=== PATIENT | female | born 1965 | race Caucasian/White ===

== ENCOUNTER 2023-09-24 05:42 | Inpatient (IN) | payer MEDICAID ==
[~2023-09-24] VITALS: Ht 162.6 cm; Wt 58.1 kg
[2023-09-24] MEDS ORDERED: ONDANSETRON HCL/PF 4 MG/2 ML VIAL ONE (06:27)
[2023-09-24] MEDS ORDERED: FAMOTIDINE/PF INJ 20 MG/2 ML VIAL IV ONE (06:27)
[2023-09-24] MEDS: ONDANSETRON HCL/PF 4 MG/2 ML VIAL IVP ONE (06:34)
[2023-09-24] MEDS: IV NS 0.9% 1,000 ML BAG IV ONE (06:34)
[2023-09-24] MEDS: FAMOTIDINE/PF INJ 20 MG/2 ML VIAL IV ONE (06:35)
[2023-09-24 06:41] LABS: BASOPHILS % (AUTO) 0.3 % (0.0-2.0); EOSINOPHILS # (AUTO) 0.1 K/uL (0.0-0.7); EOSINOPHILS % (AUTO) 1.3 % (0.0-6.0); HEMATOCRIT 34 % (33-45); HEMOGLOBIN 11.1 g/dL (11.5-14.8); LYMPHOCYTES # (AUTO) 1.4 K/uL (0.8-4.8); LYMPHOCYTES % (AUTO) 13.4 % (20.0-44.0); MEAN CORPUSCULAR HEMOGLOBIN 32 PG (26.0-33.0); MEAN CORPUSCULAR HGB CONC 33 g/dl (31.0-36.0); MEAN CORPUSCULAR VOLUME 96 fL (82-100); MONOCYTES # (AUTO) 0.7 K/uL (0.1-1.30); MONOCYTES % (AUTO) 6.6 % (2.0-12.0); NEUTROPHILS # (AUTO) 8.4 K/uL (1.8-8.9); NEUTROPHILS % (AUTO) 78.4 % (43.0-81.0); PLATELET COUNT (AUTO) 182 K/uL (150-450); RED BLOOD CELL COUNT(AUTO) 3.49 MIL/uL (4.0-5.2); RED CELL DISTRIBUTION WIDTH 16.5 % (11.5-15.0); WHITE BLOOD COUNT (AUTO) 10.8 K/uL (4.3-11.0)
[2023-09-24 07:18] LABS: ALANINE AMINOTRANSFERASE 25 U/L (12-78); ALBUMIN 2.2 g/dL (3.4-5.0); ALKALINE PHOSPHATASE 154 U/L (46-116); ASPARTATE AMINOTRANSFERASE 78 U/L (15-37); BILIRUBIN,DIRECT 1.6 mg/dL (0.0-0.2); BILIRUBIN,TOTAL 2.4 mg/dL (0.2-1.0); CALCIUM, SERUM 7.5 mg/dL (8.5-10.1); CHLORIDE 106 mmol/L (98-107); CREATININE 1.1 mg/dL (0.6-1.3); GLUCOSE 93 mg/dL (74-106); LIPASE 29 U/L (16-77); SODIUM SERUM 137 mmol/L (136-145); TOTAL PROTEIN, SERUM 6.6 g/dL (6.4-8.2); UREA NITROGEN, BLOOD 9 mg/dL (7-18)
[2023-09-24 07:26] LABS: CARBON DIOXIDE 14 mmol/L (21-32); POTASSIUM 2.8 mmol/L (3.5-5.1)
[2023-09-24 07:27] LABS: APPEARANCE,URINE CLEAR (CLEAR); BILIRUBIN,URINE 2+ (NEGATIVE); BLOOD, URINE NEGATIVE Ery/uL (NEGATIVE); COLOR,URINE YELLOW (YELLOW); KETONES,URINE 1+ mg/dL (NEGATIVE); LEUKOCYTE ESTERASE ,URINE NEGATIVE (NEGATIVE); NITRITE, URINE POSITIVE (NEGATIVE); PH,URINE 6.5 (5.0-8.0); PROTEIN,URINE TRACE mg/dl (NEGATIVE); UGLUCOSE TRACE mg/dL (NEGATIVE)
[2023-09-24] MEDS: POTASSIUM CL. PREMIX PERIPHER. 50 ML IV SCH (07:56)
[2023-09-24] MEDS ORDERED: diphenhydrAMINE HCL 50 MG/ML VIAL ONE (08:01)
[2023-09-24] MEDS ORDERED: METOCLOPRAMIDE HCL 10 MG/2 ML VIAL ONE (08:01)
[2023-09-24] MEDS ORDERED: OMEP40CA21 PO (08:06)
[2023-09-24] MEDS ORDERED: IBUP-1955 PO (08:06)
[2023-09-24] MEDS ORDERED: SPIR100T5 PO (08:06)
[2023-09-24] MEDS: diphenhydrAMINE HCL 50 MG/ML VIAL IV ONE (08:10)
[2023-09-24] MEDS: METOCLOPRAMIDE HCL 10 MG/2 ML VIAL IV ONE (08:11)
[2023-09-24 08:15] LABS: RBC,URINE NONE SEEN /HPF (0-2); WBC,URINE 0-2 /HPF (0-3)
[2023-09-24 08:16] LABS: ADD URINE CULTURE YES; CALCIUM OXALATE CRYSTALS,UR Moderate /HPF (None Seen); SQUAMOUS EPITHELIAL CELL,UR Moderate /HPF (None Seen)
[2023-09-24 08:17] LABS: BACTERIA,URINE Moderate /HPF (None Seen)
[2023-09-24] MEDS ORDERED: ONDANSETRON 4 MG TAB.RAPDIS ONE (09:29)
[2023-09-24] MEDS: ONDANSETRON 4 MG TAB.RAPDIS SL ONE (09:48)
[2023-09-24] MEDS ORDERED: MORPHINE SULFATE INJ 2 MG/ML DISP.SYRIN ONE (09:51)
[2023-09-24] MEDS: MORPHINE SULFATE INJ 2 MG/ML DISP.SYRIN IV ONE (09:54)
[2023-09-24] MEDS ORDERED: ACETAMINOPHEN 325 MG TABLET PO PRN (10:00)
[2023-09-24] MEDS ORDERED: ONDANSETRON HCL/PF 4 MG/2 ML VIAL IVP PRN (10:00)
[2023-09-24] MEDS ORDERED: POTASSIUM CL. PREMIX PERIPHER. 50 ML ONE (10:53)
[2023-09-24] MEDS: PANTOPRAZOLE 40 MG VIAL IV SCH (10:58)
[2023-09-24 11:30] VITALS: BP 112/80; TEMP 97.7; O2SAT 95
[2023-09-24] MEDS: IV NS 0.9% 1,000 ML IV PRN (12:51)
[2023-09-24 12:55] VITALS: BP 112/80; TEMP 97.7; O2SAT 94
[2023-09-24 16:00] VITALS: BP 94/71; TEMP 97.9; O2SAT 99
[2023-09-24 21:13] VITALS: BP 108/80; TEMP 97.9; O2SAT 100
[2023-09-25 06:53] LABS: BASOPHILS % (AUTO) 0.4 % (0.0-2.0); EOSINOPHILS # (AUTO) 0.2 K/uL (0.0-0.7); EOSINOPHILS % (AUTO) 2.9 % (0.0-6.0); HEMATOCRIT 33 % (33-45); HEMOGLOBIN 10.5 g/dL (11.5-14.8); LYMPHOCYTES # (AUTO) 1.3 K/uL (0.8-4.8); LYMPHOCYTES % (AUTO) 15.7 % (20.0-44.0); MEAN CORPUSCULAR HEMOGLOBIN 31 PG (26.0-33.0); MEAN CORPUSCULAR HGB CONC 32 g/dl (31.0-36.0); MEAN CORPUSCULAR VOLUME 97 fL (82-100); MONOCYTES # (AUTO) 0.5 K/uL (0.1-1.30); MONOCYTES % (AUTO) 6.1 % (2.0-12.0); NEUTROPHILS # (AUTO) 6.3 K/uL (1.8-8.9); NEUTROPHILS % (AUTO) 74.9 % (43.0-81.0); PLATELET COUNT (AUTO) 132 K/uL (150-450); RED CELL DISTRIBUTION WIDTH 16.7 % (11.5-15.0); WHITE BLOOD COUNT (AUTO) 8.4 K/uL (4.3-11.0)
[2023-09-25 07:20] LABS: CREATININE 0.9 mg/dL (0.6-1.3); MAGNESIUM 1.3 mg/dL (1.8-2.4); PHOSPHORUS 2.7 mg/dL (2.5-4.9); POTASSIUM 3.1 mmol/L (3.5-5.1)
[2023-09-25 08:09] VITALS: BP 99/73; TEMP 98.6; O2SAT 100
[2023-09-25] MEDS ORDERED: OMEPRAZOLE 20 MG CAPSULE.DR PO SCH (09:00)
[2023-09-25] MEDS: FOLIC ACID 1 MG TABLET PO SCH (09:03)
[2023-09-25] MEDS: THIAMINE HCL 100 MG TABLET PO SCH (09:04)
[2023-09-25] MEDS: SPIRONOLACTONE 25 MG TABLET PO SCH (09:04)
[2023-09-25 09:25] LABS: PROTHROMBIN TIME 20.3 SECS (9.2-11.1)
[2023-09-25] MEDS: POTASSIUM CHLORIDE 20 MEQ TAB.PRT.SR PO ONE (10:26)
[2023-09-25] MEDS: MAGNESIUM OXIDE 400 MG TABLET PO ONE (10:27)
[2023-09-25] MEDS ORDERED: ivermectin TP ×2 (11:07→11:08)
[2023-09-25 16:08] VITALS: BP 90/62; TEMP 97.7; O2SAT 98
[2023-09-25 20:00] VITALS: BP 92/69; TEMP 98.1; O2SAT 100
[2023-09-26 06:47] LABS: BASOPHILS % (AUTO) 0.5 % (0.0-2.0); EOSINOPHILS # (AUTO) 0.2 K/uL (0.0-0.7); EOSINOPHILS % (AUTO) 1.6 % (0.0-6.0); HEMATOCRIT 29 % (33-45); HEMOGLOBIN 9.7 g/dL (11.5-14.8); LYMPHOCYTES # (AUTO) 1.3 K/uL (0.8-4.8); LYMPHOCYTES % (AUTO) 13.1 % (20.0-44.0); MEAN CORPUSCULAR HEMOGLOBIN 32 PG (26.0-33.0); MEAN CORPUSCULAR HGB CONC 34 g/dl (31.0-36.0); MEAN CORPUSCULAR VOLUME 94 fL (82-100); MONOCYTES # (AUTO) 0.7 K/uL (0.1-1.30); MONOCYTES % (AUTO) 7.1 % (2.0-12.0); NEUTROPHILS # (AUTO) 7.5 K/uL (1.8-8.9); NEUTROPHILS % (AUTO) 77.7 % (43.0-81.0); PLATELET COUNT (AUTO) 148 K/uL (150-450); RED BLOOD CELL COUNT(AUTO) 3.07 MIL/uL (4.0-5.2); RED CELL DISTRIBUTION WIDTH 16.1 % (11.5-15.0); WHITE BLOOD COUNT (AUTO) 9.7 K/uL (4.3-11.0)
[2023-09-26 06:59] LABS: CALCIUM, SERUM 8.1 mg/dL (8.5-10.1); CREATININE 1.2 mg/dL (0.6-1.3); MAGNESIUM 1.4 mg/dL (1.8-2.4); PHOSPHORUS 2.7 mg/dL (2.5-4.9); POTASSIUM 3.3 mmol/L (3.5-5.1)
[2023-09-26 08:00] VITALS: BP_SYST 120; BP_SYST 129; BP_SYST 85; BP_DIAS 65; BP_DIAS 81; TEMP 98.1; O2SAT 100
[2023-09-26] MEDS: PANTOPRAZOLE 40 MG TABLET.DR PO SCH (08:35)
[2023-09-26] MEDS: POTASSIUM CHLORIDE 20 MEQ TAB.PRT.SR PO SCH (09:23)
[2023-09-26] MEDS: MAGNESIUM OXIDE 400 MG TABLET PO ONE (10:03)
[2023-09-26 16:00] VITALS: BP 89/70; TEMP 98.2; O2SAT 98
[2023-09-27 07:30] VITALS: BP 91/67; TEMP 97.5; O2SAT 100
[2023-09-27] MEDS: MAGNESIUM HYDROXIDE 30 ML UDC PO PRN (08:34)
[2023-09-27 09:25] LABS: BASOPHILS # (AUTO) 0.1 K/uL (0.0-0.2); BASOPHILS % (AUTO) 0.7 % (0.0-2.0); EOSINOPHILS # (AUTO) 0.2 K/uL (0.0-0.7); EOSINOPHILS % (AUTO) 2.1 % (0.0-6.0); HEMATOCRIT 30 % (33-45); HEMOGLOBIN 9.8 g/dL (11.5-14.8); LYMPHOCYTES # (AUTO) 1.4 K/uL (0.8-4.8); LYMPHOCYTES % (AUTO) 14.7 % (20.0-44.0); MEAN CORPUSCULAR HEMOGLOBIN 31 PG (26.0-33.0); MEAN CORPUSCULAR HGB CONC 33 g/dl (31.0-36.0); MEAN CORPUSCULAR VOLUME 94 fL (82-100); MONOCYTES # (AUTO) 0.6 K/uL (0.1-1.30); MONOCYTES % (AUTO) 6.1 % (2.0-12.0); NEUTROPHILS # (AUTO) 7.1 K/uL (1.8-8.9); NEUTROPHILS % (AUTO) 76.4 % (43.0-81.0); PLATELET COUNT (AUTO) 145 K/uL (150-450); RED BLOOD CELL COUNT(AUTO) 3.14 MIL/uL (4.0-5.2); RED CELL DISTRIBUTION WIDTH 16.5 % (11.5-15.0); WHITE BLOOD COUNT (AUTO) 9.3 K/uL (4.3-11.0)
[2023-09-27 09:40] VITALS: BP 110/73
[2023-09-27 09:55] LABS: CALCIUM, SERUM 8.3 mg/dL (8.5-10.1); CREATININE 1.1 mg/dL (0.6-1.3); POTASSIUM 3.9 mmol/L (3.5-5.1)
[2023-09-27 10:00] LABS: BILIRUBIN,TOTAL 1.6 mg/dL (0.2-1.0); TOTAL PROTEIN, SERUM 5.8 g/dL (6.4-8.2)
[2023-09-27 11:48] LABS: INR 1.69 (0.91-1.10); PROTHROMBIN TIME 17.3 SECS (9.2-11.1)
[2023-09-27] MEDS ORDERED: FUROSEMIDE 40 MG TABLET PO SCH (15:30)
[2023-09-27 16:00] VITALS: BP 77/51; TEMP 97.9; O2SAT 100
[2023-09-27] MEDS: MIDODRINE HCL (5MG) 5 MG TABLET PO SCH (16:32)
[2023-09-27] MEDS: ALBUMIN 25% 25 GM in PREMIX 1 EA IV ONE (16:32)
[2023-09-27 20:00] VITALS: BP 94/64; TEMP 97.8; O2SAT 100
[2023-09-28 07:04] LABS: CALCIUM, SERUM 8.5 mg/dL (8.5-10.1); CREATININE 1.1 mg/dL (0.6-1.3); POTASSIUM 3.6 mmol/L (3.5-5.1)
[2023-09-28 07:08] LABS: ALBUMIN 2.2 g/dL (3.4-5.0); BILIRUBIN,TOTAL 2.6 mg/dL (0.2-1.0); TOTAL PROTEIN, SERUM 5.6 g/dL (6.4-8.2)
[2023-09-28 07:19] LABS: BASOPHILS % (AUTO) 0.2 % (0.0-2.0); EOSINOPHILS % (AUTO) 0.2 % (0.0-6.0); HEMATOCRIT 27 % (33-45); LYMPHOCYTES # (AUTO) 1.4 K/uL (0.8-4.8); LYMPHOCYTES % (AUTO) 8.7 % (20.0-44.0); MEAN CORPUSCULAR HEMOGLOBIN 32 PG (26.0-33.0); MEAN CORPUSCULAR HGB CONC 34 g/dl (31.0-36.0); MEAN CORPUSCULAR VOLUME 93 fL (82-100); MONOCYTES % (AUTO) 6.3 % (2.0-12.0); NEUTROPHILS # (AUTO) 13.5 K/uL (1.8-8.9); NEUTROPHILS % (AUTO) 84.6 % (43.0-81.0); PLATELET COUNT (AUTO) 150 K/uL (150-450); RED BLOOD CELL COUNT(AUTO) 2.87 MIL/uL (4.0-5.2)
[2023-09-28 07:30] VITALS: BP 90/63; TEMP 98.6; O2SAT 98
[2023-09-28 08:51] VITALS: BP 90/63
[2023-09-28] MEDS ORDERED: MIDO5TAB4 PO (11:43)
[2023-09-28] MEDS ORDERED: POTA10CA43 PO (11:43)
[2023-09-28] MEDS ORDERED: THIA100T74 PO (11:43)
== END 2023-09-28 12:15 | disposition home or self-care (01) | DRG 280 ==
LOC: ER 05:42 → MED 10:20
PROVIDERS: ADMIT Nurse Practitioner Acute Care; ATTEND Internal Medicine
PROC: 0W9G3ZZ Drainage of Peritoneal Cavity, Percutaneous Approach (ICD-10-PCS; principal; 2023-09-27)
DX: K70.31 Alcoholic cirrhosis of liver with ascites (principal); E44.0 Moderate protein-calorie malnutrition; I95.9 Hypotension, unspecified; E88.09 Other disorders of plasma-protein metabolism, not elsewhere classified; D64.9 Anemia, unspecified; E87.6 Hypokalemia; R74.01 Elevation of levels of liver transaminase levels; F10.10 Alcohol abuse, uncomplicated; Z68.22 Body mass index [BMI] 22.0-22.9, adult
CPT/HCPCS: 36415; 49083; 76705-TC; 80048-TC; 80053-TC; 80061-TC; 80076-TC; 81001; 83690-TC; 83735-TC; 84100-TC; 84484-TC; 85025-TC; 85610-TC; 86850-TC; 87086-TC; A4216; A4223; C9113; G0378; J1200; J2270; J2405; J2765; J3480; J3490; J7030; P9047; Q0162

== ENCOUNTER 2023-10-02 23:09 | Inpatient (IN) | payer MEDICAID ==
[~2023-10-02] VITALS: Ht 162.6 cm; Wt 56.7 kg
[~2023-10-02 23:09] MED LIST: IBUP-1955 PO; MIDO5TAB4 PO; OMEP40CA21 PO; POTA10CA43 PO; SPIR100T5 PO; THIA100T74 PO; ivermectin TP
[2023-10-03] MEDS ORDERED: MORPHINE SULFATE INJ 4 MG/ML DISP.SYRIN ONE (01:45)
[2023-10-03] MEDS ORDERED: ONDANSETRON HCL/PF 4 MG/2 ML VIAL ONE (01:45)
[2023-10-03] MEDS: MORPHINE SULFATE INJ 2 MG/ML DISP.SYRIN IV ONE (01:50)
[2023-10-03] MEDS: ONDANSETRON HCL/PF 4 MG/2 ML VIAL IV ONE (01:50)
[2023-10-03 02:03] LABS: BASOPHILS # (AUTO) 0.1 K/uL (0.0-0.2); BASOPHILS % (AUTO) 0.7 % (0.0-2.0); EOSINOPHILS % (AUTO) 0.4 % (0.0-6.0); HEMATOCRIT 30 % (33-45); HEMOGLOBIN 10.1 g/dL (11.5-14.8); LYMPHOCYTES # (AUTO) 1.2 K/uL (0.8-4.8); LYMPHOCYTES % (AUTO) 12.5 % (20.0-44.0); MEAN CORPUSCULAR HEMOGLOBIN 32 PG (26.0-33.0); MEAN CORPUSCULAR HGB CONC 34 g/dl (31.0-36.0); MEAN CORPUSCULAR VOLUME 94 fL (82-100); MONOCYTES # (AUTO) 0.5 K/uL (0.1-1.30); MONOCYTES % (AUTO) 5.4 % (2.0-12.0); NEUTROPHILS # (AUTO) 7.6 K/uL (1.8-8.9); PLATELET COUNT (AUTO) 198 K/uL (150-450); RED BLOOD CELL COUNT(AUTO) 3.22 MIL/uL (4.0-5.2); WHITE BLOOD COUNT (AUTO) 9.4 K/uL (4.3-11.0)
[2023-10-03 02:28] LABS: CALCIUM, SERUM 7.8 mg/dL (8.5-10.1); CREATININE 1.6 mg/dL (0.6-1.3); POTASSIUM 3.4 mmol/L (3.5-5.1)
[2023-10-03 02:35] LABS: ALBUMIN 2.6 g/dL (3.4-5.0); BILIRUBIN,DIRECT 1.4 mg/dL (0.0-0.2); BILIRUBIN,TOTAL 1.6 mg/dL (0.2-1.0); TOTAL PROTEIN, SERUM 6.8 g/dL (6.4-8.2)
[2023-10-03] MEDS ORDERED: MORPHINE SULFATE INJ 2 MG/ML DISP.SYRIN IV PRN (05:30)
[2023-10-03] MEDS: POTASSIUM CHLORIDE 20 MEQ TAB.PRT.SR PO ONE (05:30)
[2023-10-03] MEDS ORDERED: ONDANSETRON HCL/PF 4 MG/2 ML VIAL IVP PRN (05:30)
[2023-10-03 07:30] VITALS: BP 98/67; TEMP 97.7; O2SAT 100
[2023-10-03] MEDS: ALBUMIN 25% 25 GM in PREMIX 1 EA IV SCH (08:43)
[2023-10-03] MEDS: PANTOPRAZOLE 40 MG VIAL IV SCH (08:44)
[2023-10-03] MEDS: THIAMINE HCL 100 MG TABLET PO SCH (08:44)
[2023-10-03] MEDS: SPIRONOLACTONE 25 MG TABLET PO SCH (08:59)
[2023-10-03] MEDS ORDERED: CEFTRIAXONE 1 G in IV D5W 50 ML IV SCH (10:30)
[2023-10-03] MEDS: CEFTRIAXONE 1 G in IV D5W 50 ML IV SCH (11:43)
[2023-10-03 16:00] VITALS: BP 93/57; TEMP 97.5; O2SAT 100
[2023-10-03 19:50] VITALS: BP 94/65; TEMP 98.1; O2SAT 98
[2023-10-03 20:01] VITALS: BP 94/65; TEMP 98.1; O2SAT 98
[2023-10-03 20:37] LABS: CREATININE, URINE 56.1 MG/DL (30.0-125.0); URINE TOTAL PROTEIN 28.3 mg/dL (0-11.9)
[2023-10-03 20:52] LABS: APPEARANCE,URINE CLEAR (CLEAR); BILIRUBIN,URINE NEGATIVE (NEGATIVE); BLOOD, URINE NEGATIVE Ery/uL (NEGATIVE); COLOR,URINE YELLOW (YELLOW); KETONES,URINE NEGATIVE (NEGATIVE); LEUKOCYTE ESTERASE ,URINE NEGATIVE (NEGATIVE); NITRITE, URINE NEGATIVE (NEGATIVE); PROTEIN,URINE NEGATIVE (NEGATIVE); UGLUCOSE NEGATIVE (NEGATIVE)
[2023-10-03 20:55] LABS: EOSINOPHIL,URINE None Seen
[2023-10-03 20:57] VITALS: BP 94/65; TEMP 98.1; O2SAT 98
[2023-10-04 06:48] LABS: BASOPHILS % (AUTO) 0.6 % (0.0-2.0); EOSINOPHILS # (AUTO) 0.1 K/uL (0.0-0.7); EOSINOPHILS % (AUTO) 1.2 % (0.0-6.0); HEMATOCRIT 30 % (33-45); HEMOGLOBIN 9.3 g/dL (11.5-14.8); LYMPHOCYTES # (AUTO) 0.8 K/uL (0.8-4.8); LYMPHOCYTES % (AUTO) 9.5 % (20.0-44.0); MEAN CORPUSCULAR HEMOGLOBIN 31 PG (26.0-33.0); MEAN CORPUSCULAR HGB CONC 32 g/dl (31.0-36.0); MEAN CORPUSCULAR VOLUME 98 fL (82-100); MONOCYTES # (AUTO) 0.5 K/uL (0.1-1.30); MONOCYTES % (AUTO) 5.5 % (2.0-12.0); NEUTROPHILS # (AUTO) 7.1 K/uL (1.8-8.9); NEUTROPHILS % (AUTO) 83.2 % (43.0-81.0); PLATELET COUNT (AUTO) 145 K/uL (150-450); RED BLOOD CELL COUNT(AUTO) 3.01 MIL/uL (4.0-5.2); RED CELL DISTRIBUTION WIDTH 16.8 % (11.5-15.0); WHITE BLOOD COUNT (AUTO) 8.6 K/uL (4.3-11.0)
[2023-10-04 07:00] VITALS: BP 108/71; TEMP 98.4; O2SAT 100
[2023-10-04 07:53] LABS: CALCIUM, SERUM 7.6 mg/dL (8.5-10.1); CREATININE 1.3 mg/dL (0.6-1.3); MAGNESIUM 1.8 mg/dL (1.8-2.4); PHOSPHORUS 2.4 mg/dL (2.5-4.9)
[2023-10-04] MEDS: ALBUMIN 25% 12.5 GM/50 ML BOTTLE IV ONE (08:14)
[2023-10-04] MEDS: PANTOPRAZOLE 40 MG TABLET.DR PO SCH (08:21)
[2023-10-04 08:25] LABS: INR 2.54 (0.91-1.10); PROTHROMBIN TIME 25.3 SECS (9.2-11.1)
[2023-10-04] MEDS: POTASSIUM CHLORIDE 20 MEQ TAB.PRT.SR PO ONE (09:34)
[2023-10-04] MEDS: SODIUM BICARBONATE SYR 50 MEQ/50 ML DISP.SYRIN IV ONE (10:16)
[2023-10-04] MEDS ORDERED: PHYTONADIONE 5 MG TABLET PO ONE (11:00)
[2023-10-04] MEDS ORDERED: Sodium Bicarbonate 100 MEQ in IV D5/0.45 NACL 1,000 ML IV PRN (11:00)
[2023-10-04] MEDS: PHYTONADIONE INJ 10 MG/1 ML AMPUL SQ ONE (11:36)
[2023-10-04] MEDS: IV 1/2NS 1000 ML 1,000 ML IV PRN (12:22)
[2023-10-04] MEDS: NEUTRA PHOS 1 POWD.PACKET PO ONE (15:46)
[2023-10-04 16:07] VITALS: BP 96/60; TEMP 97.7; O2SAT 99
[2023-10-04 17:58] LABS: PROTEIN, BODY FLUID 1.2 G/DL
[2023-10-04 18:06] LABS: WBC, BODY FLUID 192 /cu. mm. (0-200)
[2023-10-04 19:18] LABS: APPEARANCE,SPUN,BODY FLUID CLEAR (CLEAR); TOTAL VOLUME,BODY FLUID 4665 mL
[2023-10-04 19:38] LABS: MACROPHAGES, BODY FLUID 68
[2023-10-04 19:39] LABS: POLYNUCLEAR, BODY FLUID 3 % (0-25)
[2023-10-04 20:24] VITALS: BP 111/73; TEMP 97.7; O2SAT 100
[2023-10-04] MEDS: ACETAMINOPHEN 325 MG TABLET PO PRN (23:41)
[2023-10-05] MEDS ORDERED: LORAZEPAM 0.5 MG TABLET PO PRN (01:00)
[2023-10-05 08:00] VITALS: BP 119/68; TEMP 97.5; O2SAT 100
[2023-10-05] MEDS: IV D5/0.45 NACL 1,000 ML IV ONE (08:44)
[2023-10-05 08:46] LABS: BASOPHILS # (AUTO) 0.1 K/uL (0.0-0.2); BASOPHILS % (AUTO) 0.6 % (0.0-2.0); EOSINOPHILS % (AUTO) 0.2 % (0.0-6.0); HEMATOCRIT 26 % (33-45); HEMOGLOBIN 8.7 g/dL (11.5-14.8); LYMPHOCYTES # (AUTO) 1.1 K/uL (0.8-4.8); LYMPHOCYTES % (AUTO) 12.3 % (20.0-44.0); MEAN CORPUSCULAR HEMOGLOBIN 31 PG (26.0-33.0); MEAN CORPUSCULAR HGB CONC 34 g/dl (31.0-36.0); MEAN CORPUSCULAR VOLUME 90 fL (82-100); MONOCYTES # (AUTO) 0.5 K/uL (0.1-1.30); MONOCYTES % (AUTO) 6.1 % (2.0-12.0); NEUTROPHILS % (AUTO) 80.8 % (43.0-81.0); PLATELET COUNT (AUTO) 145 K/uL (150-450); RED BLOOD CELL COUNT(AUTO) 2.85 MIL/uL (4.0-5.2); RED CELL DISTRIBUTION WIDTH 15.1 % (11.5-15.0); WHITE BLOOD COUNT (AUTO) 8.7 K/uL (4.3-11.0)
[2023-10-05 09:08] LABS: ALBUMIN 2.7 g/dL (3.4-5.0); BILIRUBIN,TOTAL 2.6 mg/dL (0.2-1.0); CALCIUM, SERUM 8.4 mg/dL (8.5-10.1); CREATININE 0.9 mg/dL (0.6-1.3); TOTAL PROTEIN, SERUM 6.1 g/dL (6.4-8.2)
[2023-10-05 09:28] LABS: POTASSIUM 2.7 mmol/L (3.5-5.1)
[2023-10-05] MEDS: LACTULOSE 10 G/15 ML UDC (PYXIS) PO PRN (11:56)
[2023-10-05] MEDS: RIFAXIMIN 550 MG TABLET PO SCH (11:56)
[2023-10-05] MEDS: POTASSIUM CHLORIDE 20 MEQ POWDER PACKET PO SCH (11:57)
[2023-10-05 12:00] VITALS: BP 147/99; TEMP 97.5; O2SAT 100
[2023-10-05] MEDS: LACTULOSE 10 G/15 ML UDC (PYXIS) NG SCH (14:14)
[2023-10-05 16:00] VITALS: BP 126/77; TEMP 97.7; O2SAT 100
[2023-10-05] MEDS ORDERED: LACTULOSE 10 G/15 ML UDC (PYXIS) NG SCH (18:00)
[2023-10-05 18:40] LABS: CALCIUM, SERUM 8.9 mg/dL (8.5-10.1); POTASSIUM 3.1 mmol/L (3.5-5.1)
[2023-10-05] MEDS ORDERED: POTASSIUM CHLORIDE 20 MEQ POWDER PACKET NG SCH (19:30)
[2023-10-05] MEDS: POTASSIUM CHLORIDE 20 MEQ POWDER PACKET GT ONE (19:55)
[2023-10-05 20:00] VITALS: BP 119/84; TEMP 97.7; O2SAT 100
[2023-10-05 20:36] VITALS: BP 119/84; TEMP 97.7; O2SAT 100
[2023-10-05 22:07] LABS: BASOPHILS # (AUTO) 0.1 K/uL (0.0-0.2); BASOPHILS % (AUTO) 0.8 % (0.0-2.0); EOSINOPHILS # (AUTO) 0.1 K/uL (0.0-0.7); EOSINOPHILS % (AUTO) 1.1 % (0.0-6.0); HEMATOCRIT 29 % (33-45); HEMOGLOBIN 9.7 g/dL (11.5-14.8); LYMPHOCYTES # (AUTO) 1.2 K/uL (0.8-4.8); LYMPHOCYTES % (AUTO) 12.2 % (20.0-44.0); MEAN CORPUSCULAR HEMOGLOBIN 31 PG (26.0-33.0); MEAN CORPUSCULAR HGB CONC 34 g/dl (31.0-36.0); MEAN CORPUSCULAR VOLUME 91 fL (82-100); MONOCYTES # (AUTO) 0.8 K/uL (0.1-1.30); MONOCYTES % (AUTO) 8.2 % (2.0-12.0); NEUTROPHILS # (AUTO) 7.7 K/uL (1.8-8.9); NEUTROPHILS % (AUTO) 77.7 % (43.0-81.0); PLATELET COUNT (AUTO) 165 K/uL (150-450); RED BLOOD CELL COUNT(AUTO) 3.13 MIL/uL (4.0-5.2); RED CELL DISTRIBUTION WIDTH 15.5 % (11.5-15.0); WHITE BLOOD COUNT (AUTO) 9.9 K/uL (4.3-11.0)
[2023-10-05 22:18] LABS: BILIRUBIN,TOTAL 2.7 mg/dL (0.2-1.0); CALCIUM, SERUM 8.7 mg/dL (8.5-10.1); CREATININE 1.1 mg/dL (0.6-1.3); PHOSPHORUS 1.3 mg/dL (2.5-4.9); POTASSIUM 3.7 mmol/L (3.5-5.1); TOTAL PROTEIN, SERUM 6.2 g/dL (6.4-8.2)
[2023-10-05 22:29] LABS: MAGNESIUM 1.2 mg/dL (1.8-2.4)
[2023-10-05] MEDS: IV D5/0.45 NACL 1,000 ML IV SCH (23:00)
[2023-10-05] MEDS: Magnesium 1 GM/2 ML VIAL IV ONE (23:30)
[2023-10-05] MEDS: Magnesium 1GM/D5W 100ML PREMIX 100 ML IV SCH (23:48)
[2023-10-05] MEDS: NEUTRA PHOS 1 POWD.PACKET NG ONE (23:48)
[2023-10-06] VITALS (7 sets, daily range): BP systolic 90–111; BP diastolic 64–83; TEMP 97.5–98.8; O2SAT 100
[2023-10-06 01:17] LABS: BILIRUBIN,DIRECT 1.3 mg/dL (0.0-0.2)
[2023-10-06 01:24] LABS: LACTIC ACID REFLEX 1.7 mmol/L (0.4-1.9)
[2023-10-06 07:39] LABS: BASOPHILS % (AUTO) 0.4 % (0.0-2.0); EOSINOPHILS # (AUTO) 0.2 K/uL (0.0-0.7); EOSINOPHILS % (AUTO) 1.5 % (0.0-6.0); HEMATOCRIT 29 % (33-45); HEMOGLOBIN 9.7 g/dL (11.5-14.8); LYMPHOCYTES # (AUTO) 1.2 K/uL (0.8-4.8); LYMPHOCYTES % (AUTO) 11.3 % (20.0-44.0); MEAN CORPUSCULAR HEMOGLOBIN 31 PG (26.0-33.0); MEAN CORPUSCULAR HGB CONC 34 g/dl (31.0-36.0); MEAN CORPUSCULAR VOLUME 91 fL (82-100); MONOCYTES # (AUTO) 0.8 K/uL (0.1-1.30); MONOCYTES % (AUTO) 7.3 % (2.0-12.0); NEUTROPHILS # (AUTO) 8.6 K/uL (1.8-8.9); NEUTROPHILS % (AUTO) 79.5 % (43.0-81.0); PLATELET COUNT (AUTO) 176 K/uL (150-450); RED BLOOD CELL COUNT(AUTO) 3.14 MIL/uL (4.0-5.2); RED CELL DISTRIBUTION WIDTH 15.8 % (11.5-15.0); WHITE BLOOD COUNT (AUTO) 10.8 K/uL (4.3-11.0)
[2023-10-06 07:58] LABS: ALBUMIN 2.9 g/dL (3.4-5.0); BILIRUBIN,TOTAL 2.8 mg/dL (0.2-1.0); CALCIUM, SERUM 8.7 mg/dL (8.5-10.1); POTASSIUM 3.5 mmol/L (3.5-5.1); TOTAL PROTEIN, SERUM 6.3 g/dL (6.4-8.2)
[2023-10-06 20:29] LABS: ABG BASE EXCESS -12.2 mmol/L; ABG BASE EXCESS -6.4 mmol/L; ABG OXYGEN SATURATION 96.4 % (92.0-98.5); ABG OXYGEN SATURATION 97.1 % (92.0-98.5); ABG PCO2 17.9 mmHg (35.0-45.0); ABG PH 7.413 (7.350-7.450); ABG PH 7.529 (7.350-7.450); ABG PO2 102.7 mmHg (75.0-100.0); ABG TOTAL HEMOGLOBIN 8.7 G/dL (12.0-16.0); ABG TOTAL HEMOGLOBIN 9.7 G/dL (12.0-16.0); AaDO2 25.6 mmHg; AaDO2 38.4 mmHg; COHb 0.3 % (0.5-1.5); COHb 0.5 % (0.5-1.5); MetHb 0.1 % (0.0-1.5); MetHb 0.2 % (0.0-1.5); O2Hb 95.7 % (94.0-97.0); O2Hb 96.7 % (94.0-97.0); SITE, ABG Left Brachial; SITE, ABG Right Radial; SITE, VBG Right Radial; VBG BASE EXCESS -8.8 mmol/L (-3-3); VBG COHb 0.2 %; VBG MetHb 0.2 %; VBG O2Hb 57.2 %; VBG OXYGEN SATURATION 57.4 %; VBG PH 7.388 (7.31-7.41); VBG PO2 31.9 mmHg (30-50); VBG TOTAL HEMOGLOBIN 10.6 G/dL (12.0-16.0); VENT MODE, BG nasal cannula; VENT MODE, VBG Room Air
[2023-10-07] VITALS: BP 94/69; TEMP 99; O2SAT 99
[2023-10-07 04:00] VITALS: BP 85/63; TEMP 98.6; O2SAT 100
[2023-10-07 08:00] VITALS: BP 88/63; TEMP 98.2; O2SAT 100
[2023-10-07] MEDS: MIDODRINE HCL (5MG) 5 MG TABLET PO SCH (08:35)
[2023-10-07] MEDS: POTASSIUM CHLORIDE 20 MEQ TAB.PRT.SR PO SCH (08:35)
[2023-10-07 10:04] LABS: INR 1.71 (0.91-1.10); PROTHROMBIN TIME 17.5 SECS (9.2-11.1)
[2023-10-07 10:11] LABS: ALBUMIN 3.1 g/dL (3.4-5.0); BILIRUBIN,DIRECT 1.5 mg/dL (0.0-0.2); BILIRUBIN,TOTAL 3.2 mg/dL (0.2-1.0); CALCIUM, SERUM 8.7 mg/dL (8.5-10.1); CREATININE 1.1 mg/dL (0.6-1.3); POTASSIUM 3.6 mmol/L (3.5-5.1); TOTAL PROTEIN, SERUM 6.6 g/dL (6.4-8.2)
[2023-10-07] MEDS: LACTULOSE 10 G/15 ML UDC (PYXIS) PO SCH (16:02)
[2023-10-07 18:12] VITALS: BP 86/56
[2023-10-07 20:00] VITALS: BP 80/57; TEMP 98.4; O2SAT 99
[2023-10-08 07:00] VITALS: BP 77/52; TEMP 99; O2SAT 100
[2023-10-08 07:28] LABS: ALBUMIN 2.8 g/dL (3.4-5.0); BILIRUBIN,TOTAL 3.2 mg/dL (0.2-1.0); CALCIUM, SERUM 8.7 mg/dL (8.5-10.1); CREATININE 1.2 mg/dL (0.6-1.3); POTASSIUM 4.1 mmol/L (3.5-5.1); TOTAL PROTEIN, SERUM 6.2 g/dL (6.4-8.2)
[2023-10-08 07:30] VITALS: BP 90/60
[2023-10-08] MEDS: IV NS 0.9% 500 ML IV ONE (09:14)
[2023-10-08 09:50] LABS: THYROID STIMULATING HORMONE 4.433 uIU/mL (0.358-3.74)
[2023-10-08] MEDS: IV D5/0.45 NACL 1,000 ML IV PRN (15:24)
[2023-10-08 16:00] VITALS: BP 76/48; TEMP 98.8; O2SAT 100
[2023-10-08 16:30] VITALS: BP 90/60
[2023-10-08] MEDS ORDERED: LACTULOSE 10 G/15 ML UDC (PYXIS) PO SCH (19:30)
[2023-10-08] MEDS ORDERED: IV NS 0.9% 1,000 ML IV ONE (19:30)
[2023-10-08 20:00] VITALS: BP 90/60; TEMP 99; O2SAT 100
[2023-10-08] MEDS ORDERED: ALBUMIN 25% 100 ML IV ONE (20:25)
[2023-10-08] MEDS: ALBUMIN 25% 25 GM in PREMIX 1 EA IV SCH (20:30)
[2023-10-08] MEDS: SODIUM BICARBONATE SYR 50 MEQ/50 ML DISP.SYRIN IV ONE (20:30)
[2023-10-08 20:45] LABS: ABG BASE EXCESS -10.5 mmol/L; ABG OXYGEN SATURATION 96.1 % (92.0-98.5); ABG PCO2 18.2 mmHg (35.0-45.0); ABG PH 7.441 (7.350-7.450); ABG PO2 91.3 mmHg (75.0-100.0); ABG TOTAL HEMOGLOBIN 8.5 G/dL (12.0-16.0); AaDO2 36.6 mmHg; COHb 0.3 % (0.5-1.5); MetHb 0.3 % (0.0-1.5); O2Hb 95.5 % (94.0-97.0); SITE, ABG Left Brachial; VENT MODE, BG room air
[2023-10-09 06:43] LABS: BASOPHILS % (AUTO) 0.3 % (0.0-2.0); EOSINOPHILS # (AUTO) 0.2 K/uL (0.0-0.7); EOSINOPHILS % (AUTO) 1.8 % (0.0-6.0); HEMATOCRIT 23 % (33-45); HEMOGLOBIN 7.9 g/dL (11.5-14.8); LYMPHOCYTES # (AUTO) 1.4 K/uL (0.8-4.8); LYMPHOCYTES % (AUTO) 11.4 % (20.0-44.0); MEAN CORPUSCULAR HEMOGLOBIN 31 PG (26.0-33.0); MEAN CORPUSCULAR HGB CONC 34 g/dl (31.0-36.0); MEAN CORPUSCULAR VOLUME 91 fL (82-100); MONOCYTES # (AUTO) 0.7 K/uL (0.1-1.30); NEUTROPHILS # (AUTO) 9.7 K/uL (1.8-8.9); NEUTROPHILS % (AUTO) 80.5 % (43.0-81.0); PLATELET COUNT (AUTO) 120 K/uL (150-450); RED BLOOD CELL COUNT(AUTO) 2.56 MIL/uL (4.0-5.2); RED CELL DISTRIBUTION WIDTH 15.6 % (11.5-15.0)
[2023-10-09 07:23] LABS: ALBUMIN 2.8 g/dL (3.4-5.0); BILIRUBIN,DIRECT 1.4 mg/dL (0.0-0.2); MAGNESIUM 1.3 mg/dL (1.8-2.4); PHOSPHORUS 2.4 mg/dL (2.5-4.9); TOTAL PROTEIN, SERUM 5.8 g/dL (6.4-8.2)
[2023-10-09 08:09] VITALS: BP 87/58; TEMP 98.8; O2SAT 100
[2023-10-09 08:15] LABS: ALBUMIN 2.8 g/dL (3.4-5.0); BILIRUBIN,TOTAL 2.9 mg/dL (0.2-1.0); CALCIUM, SERUM 8.4 mg/dL (8.5-10.1); POTASSIUM 3.5 mmol/L (3.5-5.1); TOTAL PROTEIN, SERUM 5.8 g/dL (6.4-8.2)
[2023-10-09] MEDS: Magnesium 1GM/D5W 100ML PREMIX 100 ML IV SCH (08:44)
[2023-10-09] MEDS: SODIUM BICARBONATE SYR 50 MEQ/50 ML DISP.SYRIN IV ONE (13:47)
[2023-10-09] MEDS: K PHOS NEUTRAL 250 MG TABLET PO ONE (17:37)
[2023-10-09 20:00] VITALS: BP 88/55; TEMP 98.1; O2SAT 100
[2023-10-10 07:14] LABS: ALBUMIN 2.5 g/dL (3.4-5.0); BILIRUBIN,TOTAL 2.9 mg/dL (0.2-1.0); CALCIUM, SERUM 8.1 mg/dL (8.5-10.1); CREATININE 0.9 mg/dL (0.6-1.3); POTASSIUM 3.2 mmol/L (3.5-5.1); TOTAL PROTEIN, SERUM 5.4 g/dL (6.4-8.2)
[2023-10-10 08:21] VITALS: BP 90/62; TEMP 99.2; O2SAT 99
[2023-10-10] MEDS: POTASSIUM CHLORIDE 20 MEQ TAB.PRT.SR PO ONE (09:14)
[2023-10-10 16:05] VITALS: BP 152/94; TEMP 98.6; O2SAT 95
[2023-10-10 20:00] VITALS: BP 90/46; TEMP 98.2; O2SAT 98
[2023-10-11 06:54] LABS: CREATININE 1.3 mg/dL (0.6-1.3); MAGNESIUM 1.5 mg/dL (1.8-2.4); PHOSPHORUS 2.4 mg/dL (2.5-4.9); POTASSIUM 3.7 mmol/L (3.5-5.1)
[2023-10-11 07:03] LABS: ALBUMIN 2.3 g/dL (3.4-5.0); CALCIUM, SERUM 8.3 mg/dL (8.5-10.1); CREATININE 1.3 mg/dL (0.6-1.3); POTASSIUM 3.6 mmol/L (3.5-5.1); TOTAL PROTEIN, SERUM 5.1 g/dL (6.4-8.2)
[2023-10-11 08:00] VITALS: BP 70/44; TEMP 97.7; O2SAT 99
[2023-10-11 08:30] LABS: BASOPHILS # (AUTO) 0.1 K/uL (0.0-0.2); BASOPHILS % (AUTO) 0.3 % (0.0-2.0); EOSINOPHILS # (AUTO) 0.1 K/uL (0.0-0.7); EOSINOPHILS % (AUTO) 0.5 % (0.0-6.0); HEMATOCRIT 24 % (33-45); HEMOGLOBIN 7.6 g/dL (11.5-14.8); LYMPHOCYTES # (AUTO) 1.4 K/uL (0.8-4.8); LYMPHOCYTES % (AUTO) 6.5 % (20.0-44.0); MEAN CORPUSCULAR HEMOGLOBIN 30 PG (26.0-33.0); MEAN CORPUSCULAR HGB CONC 32 g/dl (31.0-36.0); MEAN CORPUSCULAR VOLUME 92 fL (82-100); MONOCYTES # (AUTO) 1.8 K/uL (0.1-1.30); MONOCYTES % (AUTO) 8.3 % (2.0-12.0); NEUTROPHILS # (AUTO) 18.7 K/uL (1.8-8.9); NEUTROPHILS % (AUTO) 84.4 % (43.0-81.0); PLATELET COUNT (AUTO) 135 K/uL (150-450); RED BLOOD CELL COUNT(AUTO) 2.55 MIL/uL (4.0-5.2); RED CELL DISTRIBUTION WIDTH 16.1 % (11.5-15.0); WHITE BLOOD COUNT (AUTO) 22.1 K/uL (4.3-11.0)
[2023-10-11] MEDS: MAGNESIUM OXIDE 400 MG TABLET PO ONE (09:53)
[2023-10-11 09:56] VITALS: BP 70/44
== END 2023-10-11 12:30 | disposition left against medical advice (07) | DRG 280 ==
LOC: ER 23:22 → MED 10-03 05:46 → TELE 10-05 09:54 → MED 10-07 09:05
PROVIDERS: ADMIT Internal Medicine; ATTEND Student in an Organized Health Care Education/Training Program
PROC: 0W9G3ZZ Drainage of Peritoneal Cavity, Percutaneous Approach (ICD-10-PCS; principal; 2023-10-04)
DX: K70.31 Alcoholic cirrhosis of liver with ascites (principal); N17.9 Acute kidney failure, unspecified; E87.4 Mixed disorder of acid-base balance; K76.6 Portal hypertension; E44.0 Moderate protein-calorie malnutrition; E88.09 Other disorders of plasma-protein metabolism, not elsewhere classified; K76.82 Hepatic encephalopathy; D64.9 Anemia, unspecified; D72.829 Elevated white blood cell count, unspecified; E87.6 Hypokalemia; I10 Essential (primary) hypertension; Z68.21 Body mass index [BMI] 21.0-21.9, adult; E86.9 Volume depletion, unspecified; F10.10 Alcohol abuse, uncomplicated
CPT/HCPCS: 36415; 36600; 49083; 71045-TC; 76700-TC; 80048-TC; 80053-TC; 80076-TC; 82140-TC; 82248-TC; 82533; 82570-TC; 82803-TC; 83605-TC; 83690-TC; 83735-TC; 84100-TC; 84300-TC; 84439-TC; 84443-TC; 85025-TC; 85610-TC; 87081-TC; 88108-TC; 88305-TC; 89051-TC; A4216; A4223; C9113; G0378; J0696; J2270; J2405; J3430; J3475; J3490; J7040; J7042; J7050; J7060; P9047

== ENCOUNTER 2023-10-17 00:30 | Inpatient (IN) | payer MEDICAID ==
[~2023-10-17] VITALS: Ht 154.9 cm; Wt 72.6 kg
[2023-10-17] VITALS (7 sets, daily range): BP systolic 87–117; BP diastolic 43–70; TEMP 97.6–98.2; O2SAT 95–100
[2023-10-17 02:09] LABS: APPEARANCE,URINE CLEAR (CLEAR); BILIRUBIN,URINE NEGATIVE (NEGATIVE); BLOOD, URINE NEGATIVE Ery/uL (NEGATIVE); COLOR,URINE DARK YELLOW (YELLOW); KETONES,URINE NEGATIVE (NEGATIVE); LEUKOCYTE ESTERASE ,URINE NEGATIVE (NEGATIVE); NITRITE, URINE NEGATIVE (NEGATIVE); PROTEIN,URINE NEGATIVE (NEGATIVE); UGLUCOSE NEGATIVE (NEGATIVE); UROBILINOGEN,URINE 0.2 EU/dL (0.2)
[2023-10-17 02:15] LABS: BASOPHILS % (AUTO) 0.6 % (0.0-2.0); EOSINOPHILS # (AUTO) 0.1 K/uL (0.0-0.7); EOSINOPHILS % (AUTO) 1.5 % (0.0-6.0); HEMATOCRIT 27 % (33-45); HEMOGLOBIN 8.7 g/dL (11.5-14.8); LYMPHOCYTES # (AUTO) 1.1 K/uL (0.8-4.8); LYMPHOCYTES % (AUTO) 14.4 % (20.0-44.0); MEAN CORPUSCULAR HEMOGLOBIN 31 PG (26.0-33.0); MEAN CORPUSCULAR HGB CONC 32 g/dl (31.0-36.0); MEAN CORPUSCULAR VOLUME 98 fL (82-100); MONOCYTES # (AUTO) 0.4 K/uL (0.1-1.30); MONOCYTES % (AUTO) 5.4 % (2.0-12.0); NEUTROPHILS # (AUTO) 6.2 K/uL (1.8-8.9); NEUTROPHILS % (AUTO) 78.1 % (43.0-81.0); PLATELET COUNT (AUTO) 146 K/uL (150-450); RED BLOOD CELL COUNT(AUTO) 2.79 MIL/uL (4.0-5.2); RED CELL DISTRIBUTION WIDTH 17.6 % (11.5-15.0)
[2023-10-17 02:37] LABS: INR 1.67 (0.91-1.10); PROTHROMBIN TIME 17.1 SECS (9.2-11.1)
[2023-10-17 02:39] LABS: SERUM AMMONIA 85 umol/L (11-32)
[2023-10-17 02:42] LABS: CALCIUM, SERUM 8.2 mg/dL (8.5-10.1); CHLORIDE 110 mmol/L (98-107); CREATININE 1.5 mg/dL (0.6-1.3); GLUCOSE 92 mg/dL (74-106); SODIUM SERUM 137 mmol/L (136-145); UREA NITROGEN, BLOOD 20 mg/dL (7-18)
[2023-10-17 02:51] LABS: LACTIC ACID 2.4 mmol/L (0.4-2.0)
[2023-10-17 02:56] LABS: ALANINE AMINOTRANSFERASE 17 U/L (12-78); ALBUMIN 2.8 g/dL (3.4-5.0); ALKALINE PHOSPHATASE 135 U/L (46-116); ASPARTATE AMINOTRANSFERASE 44 U/L (15-37); BILIRUBIN,TOTAL 1.9 mg/dL (0.2-1.0); LIPASE 43 U/L (16-77); TOTAL PROTEIN, SERUM 6.5 g/dL (6.4-8.2)
[2023-10-17 02:59] LABS: CARBON DIOXIDE 10 mmol/L (21-32)
[2023-10-17] MEDS ORDERED: CEFTRIAXONE 1GM BAG (ER ONLY) 50 ML IV ONE (03:28)
[2023-10-17] MEDS: CEFTRIAXONE 1 G in IV D5W 50 ML IV ONE (03:33)
[2023-10-17] MEDS ORDERED: MAGNESIUM HYDROXIDE 30 ML UDC PO PRN (04:00)
[2023-10-17] MEDS ORDERED: Z GUARD REMEDY 4 OZ OINT TP PRN (04:00)
[2023-10-17] MEDS ORDERED: ALBUMIN 25% 12.5 GM/50 ML BOTTLE IV PRN (04:00)
[2023-10-17] MEDS ORDERED: PIPERACILLIN /TAZOBACTAM 3.375 G in IV D5W 50 ML IV SCH (04:00)
[2023-10-17] MEDS ORDERED: DOXYCYCLINE HYCLATE (100 MG) 100 MG TABLET ONE (04:21)
[2023-10-17] MEDS ORDERED: CEFTRIAXONE 1 G in IV D5W 50 ML IV SCH (04:30)
[2023-10-17 05:01] LABS: BILIRUBIN,DIRECT 1.1 mg/dL (0.0-0.2)
[2023-10-17 05:21] LABS: LACTIC ACID REFLEX 2.3 mmol/L (0.4-1.9)
[2023-10-17] MEDS: MIDODRINE HCL (5MG) 5 MG TABLET PO SCH (05:28)
[2023-10-17] MEDS: HYDROMORPHONE 1 MG/1 ML DISP.SYRIN IV ONE (06:09)
[2023-10-17 08:23] LABS: MAGNESIUM 1.8 mg/dL (1.8-2.4); PHOSPHORUS 3.8 mg/dL (2.5-4.9)
[2023-10-17] MEDS: PANTOPRAZOLE 40 MG TABLET.DR PO SCH (08:24)
[2023-10-17] MEDS: SPIRONOLACTONE 25 MG TABLET PO SCH (08:25)
[2023-10-17] MEDS: POTASSIUM CHLORIDE 10 MEQ TABLET.SA PO SCH (08:25)
[2023-10-17] MEDS: LACTULOSE 10 G/15 ML UDC (PYXIS) PO SCH (08:26)
[2023-10-17] MEDS ORDERED: METRONIDAZOLE 500MG/ NS 100ML 500 MG in PREMIX 1 EA IV SCH (09:00)
[2023-10-17] MEDS ORDERED: ALBUMIN 25% 12.5 GM in PREMIX 1 EA IV PRN (09:00)
[2023-10-17] MEDS: ONDANSETRON HCL/PF 4 MG/2 ML VIAL IVP PRN (09:00)
[2023-10-17] MEDS ORDERED: PANTOPRAZOLE 40 MG VIAL IV SCH (09:00)
[2023-10-17] MEDS: METRONIDAZOLE 500 MG TABLET PO SCH (11:45)
[2023-10-17] MEDS: ALBUMIN 25% 25 GM in PREMIX 1 EA IV SCH (11:53)
[2023-10-18] MEDS ORDERED: MAG HYDROX/AL HYDROX/SIMETH 30 ML UDC PO PRN (04:00)
[2023-10-18] MEDS: CEFTRIAXONE 1 G in IV D5W 50 ML IV SCH (04:33)
[2023-10-18 06:50] LABS: BASOPHILS # (AUTO) 0.1 K/uL (0.0-0.2); BASOPHILS % (AUTO) 0.6 % (0.0-2.0); EOSINOPHILS # (AUTO) 0.1 K/uL (0.0-0.7); EOSINOPHILS % (AUTO) 0.8 % (0.0-6.0); HEMATOCRIT 23 % (33-45); HEMOGLOBIN 7.4 g/dL (11.5-14.8); LYMPHOCYTES # (AUTO) 1.1 K/uL (0.8-4.8); LYMPHOCYTES % (AUTO) 6.3 % (20.0-44.0); MEAN CORPUSCULAR HEMOGLOBIN 30 PG (26.0-33.0); MEAN CORPUSCULAR HGB CONC 32 g/dl (31.0-36.0); MEAN CORPUSCULAR VOLUME 96 fL (82-100); MONOCYTES # (AUTO) 0.9 K/uL (0.1-1.30); MONOCYTES % (AUTO) 5.4 % (2.0-12.0); NEUTROPHILS # (AUTO) 14.9 K/uL (1.8-8.9); NEUTROPHILS % (AUTO) 86.9 % (43.0-81.0); PLATELET COUNT (AUTO) 134 K/uL (150-450); RED BLOOD CELL COUNT(AUTO) 2.43 MIL/uL (4.0-5.2); RED CELL DISTRIBUTION WIDTH 16.9 % (11.5-15.0); WHITE BLOOD COUNT (AUTO) 17.1 K/uL (4.3-11.0)
[2023-10-18 06:52] LABS: INR 1.89 (0.91-1.10); PROTHROMBIN TIME 19.2 SECS (9.2-11.1)
[2023-10-18 06:55] LABS: ALBUMIN 3.7 g/dL (3.4-5.0); BILIRUBIN,TOTAL 3.1 mg/dL (0.2-1.0); CALCIUM, SERUM 8.9 mg/dL (8.5-10.1); CREATININE 1.4 mg/dL (0.6-1.3); MAGNESIUM 1.7 mg/dL (1.8-2.4); PHOSPHORUS 3.5 mg/dL (2.5-4.9); POTASSIUM 3.9 mmol/L (3.5-5.1); TOTAL PROTEIN, SERUM 6.5 g/dL (6.4-8.2)
[2023-10-18 07:30] VITALS: BP 93/62; TEMP 98.4; O2SAT 99
[2023-10-18] MEDS ORDERED: MAGNESIUM OXIDE 400 MG TABLET PO ONE (10:00)
[2023-10-18] MEDS: MAGNESIUM OXIDE 400 MG TABLET PO ONE (12:08)
[2023-10-18] MEDS: HYDROMORPHONE 1 MG/1 ML DISP.SYRIN IV PRN (12:11)
[2023-10-18] MEDS: ZOSYN IVPB 3.375 G in IV D5W 50ml IV SCH (12:12)
[2023-10-18] MEDS: ALBUMIN 25% 12.5 GM/50 ML BOTTLE IV ONE (12:12)
[2023-10-18 15:51] LABS: WBC, BODY FLUID 259 /cu. mm. (0-200)
[2023-10-18 15:55] LABS: PROTEIN, BODY FLUID 1.5 G/DL
[2023-10-18 16:00] VITALS: BP 82/57; TEMP 97.8; O2SAT 97
[2023-10-18 16:46] LABS: APPEARANCE,SPUN,BODY FLUID CLEAR (CLEAR)
[2023-10-18 16:47] LABS: MACROPHAGES, BODY FLUID 59; POLYNUCLEAR, BODY FLUID 18 % (0-25); TOTAL VOLUME,BODY FLUID 3900 mL
[2023-10-18 20:00] VITALS: BP 93/61; TEMP 98.2; O2SAT 100
[2023-10-19] VITALS (8 sets, daily range): BP systolic 68–90; BP diastolic 41–60; TEMP 98.1–98.6; O2SAT 97–100
[2023-10-19 06:23] LABS: INR 2.08 (0.91-1.10)
[2023-10-19 06:35] LABS: BASOPHILS # (AUTO) 0.1 K/uL (0.0-0.2); BASOPHILS % (AUTO) 0.4 % (0.0-2.0); EOSINOPHILS # (AUTO) 0.2 K/uL (0.0-0.7); EOSINOPHILS % (AUTO) 1.4 % (0.0-6.0); HEMATOCRIT 21 % (33-45); LYMPHOCYTES # (AUTO) 1.6 K/uL (0.8-4.8); LYMPHOCYTES % (AUTO) 11.4 % (20.0-44.0); MEAN CORPUSCULAR HEMOGLOBIN 30 PG (26.0-33.0); MEAN CORPUSCULAR HGB CONC 32 g/dl (31.0-36.0); MEAN CORPUSCULAR VOLUME 93 fL (82-100); MONOCYTES % (AUTO) 6.9 % (2.0-12.0); NEUTROPHILS # (AUTO) 11.5 K/uL (1.8-8.9); NEUTROPHILS % (AUTO) 79.9 % (43.0-81.0); PLATELET COUNT (AUTO) 132 K/uL (150-450); RED BLOOD CELL COUNT(AUTO) 2.24 MIL/uL (4.0-5.2); RED CELL DISTRIBUTION WIDTH 16.7 % (11.5-15.0); WHITE BLOOD COUNT (AUTO) 14.4 K/uL (4.3-11.0)
[2023-10-19 06:38] LABS: BILIRUBIN,DIRECT 1.7 mg/dL (0.0-0.2); BILIRUBIN,TOTAL 2.7 mg/dL (0.2-1.0); CALCIUM, SERUM 8.8 mg/dL (8.5-10.1); CREATININE 1.9 mg/dL (0.6-1.3); POTASSIUM 4.1 mmol/L (3.5-5.1); TOTAL PROTEIN, SERUM 5.4 g/dL (6.4-8.2)
[2023-10-19 06:41] LABS: HEMOGLOBIN 6.7 g/dL (11.5-14.8)
[2023-10-19] MEDS: ALBUMIN 25% 25 GM in PREMIX 1 EA IV SCH (08:36)
[2023-10-19] MEDS: PANTOPRAZOLE 40 MG TABLET.DR PO SCH (10:28)
[2023-10-19 11:10] LABS: *SPE A/G RATIO 1.5 (0.7-1.7); *SPE ALBUMIN 3.6 g/dL (2.9-4.4); *SPE ALPHA-1-GLOBULIN 0.2 g/dL (0.0-0.4); *SPE ALPHA-2-GLOBULIN 0.5 g/dL (0.4-1.0); *SPE BETA GLOBULIN 0.9 g/dL (0.7-1.3); *SPE GLOBULIN, TOTAL 2.4 g/dL (2.2-3.9); *SPE M-SPIKE Not Observed g/dL (Not Observed); *SPEGAMMA GLOBULIN 0.9 g/dL (0.4-1.8)
[2023-10-19 12:10] LABS: ANISOCYTOSIS 1+; BASOPHILS % (MANUAL) 0 % (0.0-2.0); EOSINOPHILS % (MANUAL) 2 % (0-4); LYMPHOCYTES % (MANUAL) 13 % (16-48); MONOCYTES % (MANUAL) 7 % (0-11.0); NEUTROPHILS % (MANUAL) 78 (42-76); OVALOCYTES 1+; PLATELET ESTIMATE DECREASED
[2023-10-19] MEDS: ZOSYN IVPB 2.25 G in IV D5W 50ml IV SCH ×2 (12:29→20:19)
[2023-10-19 13:10] LABS: PTH, INTACT 34 pg/mL (15-65)
[2023-10-20] VITALS (74 sets, daily range): BP systolic 72–140; BP diastolic 50–128; TEMP 98.1–100.2; O2SAT 96–100
[2023-10-20] MEDS: IV NS 0.9% 500 ML IV ONE ×2 (02:45→04:47)
[2023-10-20 03:14] LABS: BASOPHILS % (AUTO) 0.1 % (0.0-2.0); EOSINOPHILS % (AUTO) 0.2 % (0.0-6.0); HEMATOCRIT 24 % (33-45); HEMOGLOBIN 7.6 g/dL (11.5-14.8); LYMPHOCYTES # (AUTO) 1.1 K/uL (0.8-4.8); LYMPHOCYTES % (AUTO) 4.8 % (20.0-44.0); MEAN CORPUSCULAR HEMOGLOBIN 31 PG (26.0-33.0); MEAN CORPUSCULAR HGB CONC 32 g/dl (31.0-36.0); MEAN CORPUSCULAR VOLUME 96 fL (82-100); MONOCYTES # (AUTO) 0.9 K/uL (0.1-1.30); NEUTROPHILS # (AUTO) 20.3 K/uL (1.8-8.9); NEUTROPHILS % (AUTO) 90.9 % (43.0-81.0); PLATELET COUNT (AUTO) 125 K/uL (150-450); RED BLOOD CELL COUNT(AUTO) 2.48 MIL/uL (4.0-5.2); RED CELL DISTRIBUTION WIDTH 16.3 % (11.5-15.0); WHITE BLOOD COUNT (AUTO) 22.3 K/uL (4.3-11.0)
[2023-10-20 03:34] LABS: SERUM AMMONIA 48 umol/L (11-32)
[2023-10-20 03:37] LABS: ALANINE AMINOTRANSFERASE < 6 U/L (12-78); ALBUMIN 3.4 g/dL (3.4-5.0); ALKALINE PHOSPHATASE 83 U/L (46-116); ASPARTATE AMINOTRANSFERASE 16 U/L (15-37); BILIRUBIN,DIRECT 2.5 mg/dL (0.0-0.2); BILIRUBIN,TOTAL 4.8 mg/dL (0.2-1.0); CALCIUM, SERUM 8.1 mg/dL (8.5-10.1); CHLORIDE 109 mmol/L (98-107); CREATININE 2.8 mg/dL (0.6-1.3); GLUCOSE 96 mg/dL (74-106); POTASSIUM 4.5 mmol/L (3.5-5.1); SODIUM SERUM 138 mmol/L (136-145); UREA NITROGEN, BLOOD 21 mg/dL (7-18)
[2023-10-20 03:38] LABS: CARBON DIOXIDE 10 mmol/L (21-32)
[2023-10-20] MEDS: ALBUMIN 25% 25 GM in PREMIX 1 EA IV SCH (04:01)
[2023-10-20] MEDS ORDERED: IV NS 0.9% 500 ML IV ONE (04:30)
[2023-10-20] MEDS: NOREPINEPHRINE 8 MG in IV D5W 242 ML IV PRN (05:54)
[2023-10-20] MEDS: SODIUM BICARBONATE SYR 100 MEQ in IV NS 0.9% 1,000 ML IV PRN (06:09)
[2023-10-20] MEDS: NOREPINEPHRINE 8MG/250ML RTU 250 ML IV ONE (06:21)
[2023-10-20] MEDS: SODIUM BICARBONATE SYR 50 MEQ/50 ML DISP.SYRIN ONE (06:21)
[2023-10-20] MEDS: ZOSYN IVPB 2.25 G in IV D5W 50ml IV SCH ×2 (06:23→12:04)
[2023-10-20 11:19] LABS: OCCULT BLOOD STOOL NEGATIVE (NEGATIVE)
[2023-10-20] MEDS: Sodium Bicarbonate 100 MEQ in IV NS 0.9% 1,000 ML IV SCH (15:58)
[2023-10-20 18:17] LABS: HEMOGLOBIN 8.8 g/dL (11.5-14.8)
[2023-10-21] VITALS (92 sets, daily range): BP systolic 84–130; BP diastolic 56–104; TEMP 97.8–98.3; O2SAT 69–100
[2023-10-21] MEDS: MEROPENEM 500 MG in IV NS 0.9% 50 ML IV ONE (00:12)
[2023-10-21 04:26] LABS: BASOPHILS # (AUTO) 0.1 K/uL (0.0-0.2); BASOPHILS % (AUTO) 0.3 % (0.0-2.0); EOSINOPHILS # (AUTO) 0.2 K/uL (0.0-0.7); EOSINOPHILS % (AUTO) 1.1 % (0.0-6.0); HEMATOCRIT 23 % (33-45); HEMOGLOBIN 7.9 g/dL (11.5-14.8); LYMPHOCYTES # (AUTO) 1.6 K/uL (0.8-4.8); LYMPHOCYTES % (AUTO) 8.5 % (20.0-44.0); MEAN CORPUSCULAR HEMOGLOBIN 31 PG (26.0-33.0); MEAN CORPUSCULAR HGB CONC 34 g/dl (31.0-36.0); MEAN CORPUSCULAR VOLUME 91 fL (82-100); MONOCYTES # (AUTO) 0.8 K/uL (0.1-1.30); MONOCYTES % (AUTO) 4.3 % (2.0-12.0); NEUTROPHILS # (AUTO) 16.2 K/uL (1.8-8.9); NEUTROPHILS % (AUTO) 85.8 % (43.0-81.0); PLATELET COUNT (AUTO) 145 K/uL (150-450); RED BLOOD CELL COUNT(AUTO) 2.58 MIL/uL (4.0-5.2); WHITE BLOOD COUNT (AUTO) 18.9 K/uL (4.3-11.0)
[2023-10-21 04:35] LABS: CREATININE 2.3 mg/dL (0.6-1.3)
[2023-10-21] MEDS: MEROPENEM 500 MG in IV NS 0.9% 50 ML IV SCH (11:52)
[2023-10-21] MEDS: MEROPENEM 500MG/NS 50 ML PB IV ONE (20:10)
[2023-10-21] MEDS: IV NS 0.9% 250 ML IV PRN (23:00)
[2023-10-22] VITALS (98 sets, daily range): BP systolic 87–129; BP diastolic 60–96; TEMP 97.9–99.4; O2SAT 92–100
[2023-10-22 04:07] LABS: BASOPHILS % (AUTO) 0.2 % (0.0-2.0); EOSINOPHILS # (AUTO) 0.2 K/uL (0.0-0.7); EOSINOPHILS % (AUTO) 1.5 % (0.0-6.0); HEMATOCRIT 24 % (33-45); HEMOGLOBIN 7.9 g/dL (11.5-14.8); LYMPHOCYTES # (AUTO) 1.4 K/uL (0.8-4.8); LYMPHOCYTES % (AUTO) 9.2 % (20.0-44.0); MEAN CORPUSCULAR HEMOGLOBIN 30 PG (26.0-33.0); MEAN CORPUSCULAR HGB CONC 34 g/dl (31.0-36.0); MEAN CORPUSCULAR VOLUME 90 fL (82-100); MONOCYTES # (AUTO) 0.9 K/uL (0.1-1.30); MONOCYTES % (AUTO) 5.9 % (2.0-12.0); NEUTROPHILS # (AUTO) 12.8 K/uL (1.8-8.9); NEUTROPHILS % (AUTO) 83.2 % (43.0-81.0); PLATELET COUNT (AUTO) 158 K/uL (150-450); RED BLOOD CELL COUNT(AUTO) 2.62 MIL/uL (4.0-5.2); RED CELL DISTRIBUTION WIDTH 16.4 % (11.5-15.0); WHITE BLOOD COUNT (AUTO) 15.4 K/uL (4.3-11.0)
[2023-10-22 04:17] LABS: CALCIUM, SERUM 7.8 mg/dL (8.5-10.1); CREATININE 1.4 mg/dL (0.6-1.3); POTASSIUM 3.6 mmol/L (3.5-5.1)
[2023-10-22 05:04] LABS: BAND % (MANUAL) 2 % (0.0-5.0); LYMPHOCYTES % (MANUAL) 12 % (16-48); MONOCYTES % (MANUAL) 2 % (0-11.0); NEUTROPHILS % (MANUAL) 84 (42-76); PLATELET ESTIMATE ADEQUATE
[2023-10-22 05:05] LABS: ANISOCYTOSIS 2+
[2023-10-22 05:06] LABS: OVALOCYTES 1+
[2023-10-22 14:53] LABS: HEMATOCRIT 25 % (33-45); HEMOGLOBIN 8.4 g/dL (11.5-14.8); MEAN CORPUSCULAR HEMOGLOBIN 31 PG (26.0-33.0); MEAN CORPUSCULAR HGB CONC 34 g/dl (31.0-36.0); MEAN CORPUSCULAR VOLUME 89 fL (82-100); PLATELET COUNT (AUTO) 133 K/uL (150-450); RED BLOOD CELL COUNT(AUTO) 2.75 MIL/uL (4.0-5.2); RED CELL DISTRIBUTION WIDTH 16.5 % (11.5-15.0); WHITE BLOOD COUNT (AUTO) 13.3 K/uL (4.3-11.0)
[2023-10-23] VITALS (90 sets, daily range): BP systolic 93–146; BP diastolic 67–101; TEMP 97.7–99.2; O2SAT 90–100
[2023-10-23 04:38] LABS: BASOPHILS # (AUTO) 0.1 K/uL (0.0-0.2); BASOPHILS % (AUTO) 0.5 % (0.0-2.0); EOSINOPHILS # (AUTO) 0.2 K/uL (0.0-0.7); HEMATOCRIT 22 % (33-45); HEMOGLOBIN 7.5 g/dL (11.5-14.8); LYMPHOCYTES # (AUTO) 1.4 K/uL (0.8-4.8); LYMPHOCYTES % (AUTO) 11.6 % (20.0-44.0); MEAN CORPUSCULAR HEMOGLOBIN 30 PG (26.0-33.0); MEAN CORPUSCULAR HGB CONC 34 g/dl (31.0-36.0); MEAN CORPUSCULAR VOLUME 88 fL (82-100); MONOCYTES % (AUTO) 8.1 % (2.0-12.0); NEUTROPHILS # (AUTO) 9.5 K/uL (1.8-8.9); NEUTROPHILS % (AUTO) 77.8 % (43.0-81.0); PLATELET COUNT (AUTO) 143 K/uL (150-450); RED BLOOD CELL COUNT(AUTO) 2.49 MIL/uL (4.0-5.2); RED CELL DISTRIBUTION WIDTH 16.5 % (11.5-15.0); WHITE BLOOD COUNT (AUTO) 12.1 K/uL (4.3-11.0)
[2023-10-23 04:46] LABS: CALCIUM, SERUM 7.5 mg/dL (8.5-10.1); POTASSIUM 3.1 mmol/L (3.5-5.1)
[2023-10-24] VITALS (96 sets, daily range): BP systolic 86–123; BP diastolic 58–88; TEMP 97.7–98.3; O2SAT 87–100
[2023-10-24] MEDS: MEROPENEM 1 G in IV NS 0.9% 100 ML IV SCH (09:14)
[2023-10-25] VITALS (80 sets, daily range): BP systolic 92–120; BP diastolic 64–95; TEMP 98–98.3; O2SAT 86–100
[2023-10-25 03:45] LABS: BASOPHILS # (AUTO) 0.2 K/uL (0.0-0.2); BASOPHILS % (AUTO) 1.2 % (0.0-2.0); EOSINOPHILS # (AUTO) 0.4 K/uL (0.0-0.7); EOSINOPHILS % (AUTO) 3.3 % (0.0-6.0); HEMATOCRIT 22 % (33-45); HEMOGLOBIN 7.2 g/dL (11.5-14.8); LYMPHOCYTES % (AUTO) 15.8 % (20.0-44.0); MEAN CORPUSCULAR HEMOGLOBIN 30 PG (26.0-33.0); MEAN CORPUSCULAR HGB CONC 34 g/dl (31.0-36.0); MEAN CORPUSCULAR VOLUME 90 fL (82-100); MONOCYTES # (AUTO) 1.4 K/uL (0.1-1.30); NEUTROPHILS # (AUTO) 8.7 K/uL (1.8-8.9); NEUTROPHILS % (AUTO) 68.7 % (43.0-81.0); PLATELET COUNT (AUTO) 134 K/uL (150-450); RED BLOOD CELL COUNT(AUTO) 2.41 MIL/uL (4.0-5.2); RED CELL DISTRIBUTION WIDTH 16.2 % (11.5-15.0); WHITE BLOOD COUNT (AUTO) 12.7 K/uL (4.3-11.0)
[2023-10-25 04:03] LABS: CALCIUM, SERUM 7.1 mg/dL (8.5-10.1); CREATININE 1.7 mg/dL (0.6-1.3); PHOSPHORUS 2.2 mg/dL (2.5-4.9)
[2023-10-25 04:15] LABS: MAGNESIUM 1.1 mg/dL (1.8-2.4)
[2023-10-25] MEDS: Magnesium 1GM/D5W 100ML PREMIX 100 ML IV SCH (06:35)
[2023-10-25] MEDS ORDERED: POTASSIUM CHLORIDE 10 MEQ TABLET.SA PO ONE (09:30)
[2023-10-25] MEDS: ALBUMIN 25% 25 GM in PREMIX 1 EA IV SCH (09:46)
[2023-10-25 15:32] LABS: CALCIUM, SERUM 8.3 mg/dL (8.5-10.1); CREATININE 1.9 mg/dL (0.6-1.3); MAGNESIUM 1.6 mg/dL (1.8-2.4); POTASSIUM 3.4 mmol/L (3.5-5.1)
[2023-10-25] MEDS: K PHOS NEUTRAL 250 MG TABLET PO ONE (16:27)
[2023-10-25] MEDS: POTASSIUM CHLORIDE 10 MEQ TABLET.SA PO ONE (16:33)
[2023-10-25] MEDS: MAGNESIUM OXIDE 400 MG TABLET PO ONE (16:33)
[2023-10-26] VITALS (31 sets, daily range): BP systolic 79–115; BP diastolic 37–84; TEMP 98–98.4; O2SAT 78–100
[2023-10-26 09:09] LABS: BASOPHILS % (AUTO) 0.2 % (0.0-2.0); EOSINOPHILS # (AUTO) 0.3 K/uL (0.0-0.7); EOSINOPHILS % (AUTO) 1.8 % (0.0-6.0); HEMATOCRIT 21 % (33-45); LYMPHOCYTES # (AUTO) 1.5 K/uL (0.8-4.8); LYMPHOCYTES % (AUTO) 8.6 % (20.0-44.0); MEAN CORPUSCULAR HEMOGLOBIN 30 PG (26.0-33.0); MEAN CORPUSCULAR HGB CONC 33 g/dl (31.0-36.0); MEAN CORPUSCULAR VOLUME 91 fL (82-100); MONOCYTES % (AUTO) 5.7 % (2.0-12.0); NEUTROPHILS # (AUTO) 14.2 K/uL (1.8-8.9); NEUTROPHILS % (AUTO) 83.7 % (43.0-81.0); PLATELET COUNT (AUTO) 123 K/uL (150-450); RED BLOOD CELL COUNT(AUTO) 2.34 MIL/uL (4.0-5.2); RED CELL DISTRIBUTION WIDTH 17.4 % (11.5-15.0); WHITE BLOOD COUNT (AUTO) 16.9 K/uL (4.3-11.0)
[2023-10-26 09:20] LABS: CALCIUM, SERUM 8.2 mg/dL (8.5-10.1); POTASSIUM 2.9 mmol/L (3.5-5.1)
[2023-10-26 09:24] LABS: ALBUMIN 2.8 g/dL (3.4-5.0); BILIRUBIN,TOTAL 5.9 mg/dL (0.2-1.0); MAGNESIUM 1.4 mg/dL (1.8-2.4); TOTAL PROTEIN, SERUM 5.7 g/dL (6.4-8.2)
[2023-10-26 09:27] LABS: INR 2.17 (0.91-1.10); PARTIAL THROMBOPLASTIN TIME 41.6 SEC (24.3-34.3); PROTHROMBIN TIME 21.9 SECS (9.2-11.1)
[2023-10-26] MEDS: Magnesium 1GM/D5W 100ML PREMIX 100 ML IV SCH (10:01)
[2023-10-26] MEDS: POTASSIUM CL. PREMIX PERIPHER. 50 ML IV SCH (10:12)
[2023-10-26 14:53] LABS: CALCIUM, SERUM 8.1 mg/dL (8.5-10.1); POTASSIUM 3.5 mmol/L (3.5-5.1)
[2023-10-27] VITALS (40 sets, daily range): BP systolic 83–113; BP diastolic 51–93; TEMP 97.5–99; O2SAT 88–100
[2023-10-27 04:48] LABS: BASOPHILS % (AUTO) 0.2 % (0.0-2.0); EOSINOPHILS # (AUTO) 0.2 K/uL (0.0-0.7); EOSINOPHILS % (AUTO) 1.2 % (0.0-6.0); LYMPHOCYTES # (AUTO) 1.8 K/uL (0.8-4.8); LYMPHOCYTES % (AUTO) 11.6 % (20.0-44.0); MEAN CORPUSCULAR HEMOGLOBIN 31 PG (26.0-33.0); MEAN CORPUSCULAR HGB CONC 34 g/dl (31.0-36.0); MEAN CORPUSCULAR VOLUME 89 fL (82-100); MONOCYTES # (AUTO) 1.2 K/uL (0.1-1.30); MONOCYTES % (AUTO) 8.1 % (2.0-12.0); NEUTROPHILS % (AUTO) 78.9 % (43.0-81.0); PLATELET COUNT (AUTO) 133 K/uL (150-450); RED BLOOD CELL COUNT(AUTO) 2.19 MIL/uL (4.0-5.2); RED CELL DISTRIBUTION WIDTH 16.8 % (11.5-15.0); WHITE BLOOD COUNT (AUTO) 15.2 K/uL (4.3-11.0)
[2023-10-27 04:58] LABS: INR 2.09 (0.91-1.10); PROTHROMBIN TIME 21.1 SECS (9.2-11.1)
[2023-10-27 05:08] LABS: ALBUMIN 3.1 g/dL (3.4-5.0); BILIRUBIN,TOTAL 5.4 mg/dL (0.2-1.0); CALCIUM, SERUM 8.7 mg/dL (8.5-10.1); CREATININE 2.2 mg/dL (0.6-1.3); MAGNESIUM 1.7 mg/dL (1.8-2.4); PHOSPHORUS 3.1 mg/dL (2.5-4.9); POTASSIUM 3.3 mmol/L (3.5-5.1); TOTAL PROTEIN, SERUM 5.4 g/dL (6.4-8.2)
[2023-10-27 05:14] LABS: HEMATOCRIT 20 % (33-45); HEMOGLOBIN 6.7 g/dL (11.5-14.8)
[2023-10-27] MEDS ORDERED: ENSURE ENLIVE 237 ML LIQUID (VANILLA) PO SCH (09:00)
[2023-10-27] MEDS ORDERED: NEPRO VAN 237 ML CAN PO PRN (09:00)
[2023-10-27] MEDS: POTASSIUM CHLORIDE 20 MEQ TAB.PRT.SR PO ONE (09:36)
[2023-10-27] MEDS: Magnesium 1GM/D5W 100ML PREMIX 100 ML IV SCH (09:36)
[2023-10-27] MEDS: ALBUMIN 25% 25 GM in PREMIX 1 EA IV SCH (09:50)
[2023-10-27 10:00] LABS: ANISOCYTOSIS 1+; BAND % (MANUAL) 1 % (0.0-5.0); EOSINOPHILS % (MANUAL) 1 % (0-4); HYPOCHROMASIA 1+; LYMPHOCYTES % (MANUAL) 10 % (16-48); MONOCYTES % (MANUAL) 5 % (0-11.0); NEUTROPHILS % (MANUAL) 83 (42-76); OVALOCYTES FEW; PLATELET ESTIMATE DECREASED
[2023-10-28] VITALS (98 sets, daily range): BP systolic 47–126; BP diastolic 33–102; TEMP 97.8–99.2; O2SAT 78–100
[2023-10-28 04:28] LABS: BASOPHILS # (AUTO) 0.1 K/uL (0.0-0.2); BASOPHILS % (AUTO) 0.4 % (0.0-2.0); EOSINOPHILS # (AUTO) 0.2 K/uL (0.0-0.7); HEMATOCRIT 24 % (33-45); HEMOGLOBIN 7.8 g/dL (11.5-14.8); LYMPHOCYTES # (AUTO) 1.9 K/uL (0.8-4.8); LYMPHOCYTES % (AUTO) 9.6 % (20.0-44.0); MEAN CORPUSCULAR HEMOGLOBIN 29 PG (26.0-33.0); MEAN CORPUSCULAR HGB CONC 33 g/dl (31.0-36.0); MEAN CORPUSCULAR VOLUME 89 fL (82-100); MONOCYTES # (AUTO) 1.3 K/uL (0.1-1.30); MONOCYTES % (AUTO) 6.5 % (2.0-12.0); NEUTROPHILS # (AUTO) 16.7 K/uL (1.8-8.9); NEUTROPHILS % (AUTO) 82.5 % (43.0-81.0); PLATELET COUNT (AUTO) 139 K/uL (150-450); RED BLOOD CELL COUNT(AUTO) 2.66 MIL/uL (4.0-5.2); RED CELL DISTRIBUTION WIDTH 17.2 % (11.5-15.0); WHITE BLOOD COUNT (AUTO) 20.2 K/uL (4.3-11.0)
[2023-10-28 04:43] LABS: ALBUMIN 3.7 g/dL (3.4-5.0); BILIRUBIN,TOTAL 5.4 mg/dL (0.2-1.0); MAGNESIUM 1.9 mg/dL (1.8-2.4); PHOSPHORUS 2.7 mg/dL (2.5-4.9); POTASSIUM 3.3 mmol/L (3.5-5.1)
[2023-10-28 04:44] LABS: IRON, SERUM 63 ug/dl (50-175); TOTAL IRON BINDING CAPACITY 83 ug/dl (250-450)
[2023-10-28 04:47] LABS: C-REACTIVE PROTEIN 2.29 mg/dL (0.0-0.30)
[2023-10-28 04:48] LABS: D-DIMER 5.8 mg/L(FEU (0.17-0.50); INR 2.03 (0.91-1.10); PARTIAL THROMBOPLASTIN TIME 36.9 SEC (24.3-34.3); PROTHROMBIN TIME 20.5 SECS (9.2-11.1); RHEUMATOID FACTOR SCREEN NEGATIVE (NEGATIVE)
[2023-10-28 04:52] LABS: THYROID STIMULATING HORMONE 4.24 uIU/mL (0.358-3.74)
[2023-10-28 10:03] LABS: ANISOCYTOSIS 1+; BASOPHILS % (MANUAL) 0 % (0.0-2.0); EOSINOPHILS % (MANUAL) 2 % (0-4); LYMPHOCYTES % (MANUAL) 8 % (16-48); MONOCYTES % (MANUAL) 5 % (0-11.0); NEUTROPHILS % (MANUAL) 85 (42-76); OVALOCYTES 1+; PLATELET ESTIMATE DECREASED
[2023-10-28] MEDS: POTASSIUM CHLORIDE 20 MEQ TAB.PRT.SR PO ONE (10:37)
[2023-10-28] MEDS: FUROSEMIDE 40 MG/4 ML VIAL IV SCH (10:37)
[2023-10-28 12:30] LABS: APPEARANCE,URINE CLOUDY (CLEAR); BILIRUBIN,URINE 2+ (NEGATIVE); BLOOD, URINE 3+ Ery/uL (NEGATIVE); COLOR,URINE DARK YELLOW (YELLOW); KETONES,URINE TRACE mg/dL (NEGATIVE); LEUKOCYTE ESTERASE ,URINE TRACE (NEGATIVE); NITRITE, URINE NEGATIVE (NEGATIVE); PH,URINE 6.5 (5.0-8.0); PROTEIN,URINE 2+ mg/dl (NEGATIVE); UGLUCOSE NEGATIVE (NEGATIVE)
[2023-10-28 12:32] LABS: ADD URINE CULTURE YES; BACTERIA,URINE Rare /HPF (None Seen); EOSINOPHIL,URINE None Seen; RBC,URINE 51-80 /HPF (0-2); SQUAMOUS EPITHELIAL CELL,UR Moderate /HPF (None Seen)
[2023-10-28 12:40] LABS: CREATININE, URINE 176.6 MG/DL (30.0-125.0); URINE TOTAL PROTEIN 93.9 mg/dL (0-11.9)
[2023-10-28] MEDS: MEROPENEM 500 MG in IV NS 0.9% 50 ML IV SCH (15:00)
[2023-10-28] MEDS: diphenhydrAMINE HCL 50 MG/ML VIAL IV ONE (16:42)
[2023-10-28] MEDS: ACETAMINOPHEN 325 MG TABLET PO ONE (16:42)
[2023-10-28] MEDS: RIFAXIMIN 550 MG TABLET PO SCH (17:22)
[2023-10-28] MEDS: PHYTONADIONE INJ 10 MG/1 ML AMPUL SQ SCH (17:22)
[2023-10-28] MEDS: diphenhydrAMINE HCL 50 MG/ML VIAL IV PRN (23:29)
[2023-10-29] VITALS (90 sets, daily range): BP systolic 65–123; BP diastolic 36–91; TEMP 97.6–98.7; O2SAT 87–100
[2023-10-29] MEDS: ACETAMINOPHEN 650 MG/20.3 ML UDC PO PRN (01:47)
[2023-10-29 04:30] LABS: BASOPHILS # (AUTO) 0.1 K/uL (0.0-0.2); BASOPHILS % (AUTO) 0.4 % (0.0-2.0); EOSINOPHILS # (AUTO) 0.3 K/uL (0.0-0.7); EOSINOPHILS % (AUTO) 1.3 % (0.0-6.0); HEMATOCRIT 23 % (33-45); HEMOGLOBIN 7.7 g/dL (11.5-14.8); LYMPHOCYTES # (AUTO) 1.9 K/uL (0.8-4.8); LYMPHOCYTES % (AUTO) 9.5 % (20.0-44.0); MEAN CORPUSCULAR HEMOGLOBIN 29 PG (26.0-33.0); MEAN CORPUSCULAR HGB CONC 33 g/dl (31.0-36.0); MEAN CORPUSCULAR VOLUME 89 fL (82-100); MONOCYTES # (AUTO) 1.6 K/uL (0.1-1.30); MONOCYTES % (AUTO) 7.8 % (2.0-12.0); NEUTROPHILS # (AUTO) 16.1 K/uL (1.8-8.9); PLATELET COUNT (AUTO) 124 K/uL (150-450); RED BLOOD CELL COUNT(AUTO) 2.61 MIL/uL (4.0-5.2); RED CELL DISTRIBUTION WIDTH 17.7 % (11.5-15.0); WHITE BLOOD COUNT (AUTO) 19.9 K/uL (4.3-11.0)
[2023-10-29 05:05] LABS: BILIRUBIN,TOTAL 7.9 mg/dL (0.2-1.0); CALCIUM, SERUM 8.7 mg/dL (8.5-10.1); CREATININE 1.2 mg/dL (0.6-1.3); MAGNESIUM 1.4 mg/dL (1.8-2.4); PHOSPHORUS 2.7 mg/dL (2.5-4.9); TOTAL PROTEIN, SERUM 5.5 g/dL (6.4-8.2)
[2023-10-29] MEDS: MEROPENEM 1 G in IV NS 0.9% 100 ML IV SCH (09:51)
[2023-10-29] MEDS: POTASSIUM CHLORIDE 20 MEQ TAB.PRT.SR PO ONE (09:51)
[2023-10-29] MEDS: MAGNESIUM OXIDE 400 MG TABLET PO SCH (09:52)
[2023-10-29 10:09] LABS: AFP, TUMOR MARKER 4.9 ng/mL (0.0-9.2); CANCER AG, 15-3 17.1 U/mL (0.0-25.0)
[2023-10-29 11:06] LABS: FOLIC ACID 4.8 ng/mL (>3.0)
[2023-10-29] MEDS: PROSOURCE / PROSTAT (PYXIS) 30 ML UDC PO SCH (17:07)
[2023-10-30] VITALS (98 sets, daily range): BP systolic 86–124; BP diastolic 53–96; TEMP 98–99; O2SAT 89–100
[2023-10-30 04:25] LABS: BASOPHILS # (AUTO) 0.2 K/uL (0.0-0.2); BASOPHILS % (AUTO) 1.5 % (0.0-2.0); EOSINOPHILS # (AUTO) 0.3 K/uL (0.0-0.7); EOSINOPHILS % (AUTO) 1.7 % (0.0-6.0); HEMATOCRIT 22 % (33-45); HEMOGLOBIN 7.3 g/dL (11.5-14.8); LYMPHOCYTES # (AUTO) 1.8 K/uL (0.8-4.8); LYMPHOCYTES % (AUTO) 11.5 % (20.0-44.0); MEAN CORPUSCULAR HEMOGLOBIN 29 PG (26.0-33.0); MEAN CORPUSCULAR HGB CONC 33 g/dl (31.0-36.0); MEAN CORPUSCULAR VOLUME 88 fL (82-100); MONOCYTES # (AUTO) 1.3 K/uL (0.1-1.30); MONOCYTES % (AUTO) 8.4 % (2.0-12.0); NEUTROPHILS # (AUTO) 12.2 K/uL (1.8-8.9); NEUTROPHILS % (AUTO) 76.9 % (43.0-81.0); PLATELET COUNT (AUTO) 113 K/uL (150-450); RED CELL DISTRIBUTION WIDTH 17.9 % (11.5-15.0); WHITE BLOOD COUNT (AUTO) 15.9 K/uL (4.3-11.0)
[2023-10-30 04:40] LABS: INR 2.18 (0.91-1.10)
[2023-10-30 04:41] LABS: CALCIUM, SERUM 8.6 mg/dL (8.5-10.1); CREATININE 0.9 mg/dL (0.6-1.3); POTASSIUM 2.9 mmol/L (3.5-5.1)
[2023-10-30 04:43] LABS: D-DIMER 7.5 mg/L(FEU (0.17-0.50)
[2023-10-30 04:52] LABS: MAGNESIUM 1.2 mg/dL (1.8-2.4)
[2023-10-30] MEDS: Magnesium 1GM/D5W 100ML PREMIX 100 ML IV SCH (07:46)
[2023-10-30] MEDS: POTASSIUM CL. PREMIX PERIPHER. 50 ML IV SCH (08:01)
[2023-10-30 08:07] LABS: IMMUNOGLOBULIN A, SERUM 486 mg/dL (87-352); IMMUNOGLOBULIN G, SERUM 729 mg/dL (586-1602); IMMUNOGLOBULIN M, SERUM 44 mg/dL (26-217)
[2023-10-30 09:10] LABS: *ANA ANTI-CENTROMERE B AB <0.2 AI (0.0-0.9); *ANA ANTI-DNA(DS) AB, QN <1 IU/mL (0-9); *ANA ANTI-JO-1 <0.2 AI (0.0-0.9); *ANA ANTICHROMATIN ANTIBODY <0.2 AI (0.0-0.9); *ANA RNP ANTIBODIES 0.4 AI (0.0-0.9); *ANA SJOGREN'S ANTI-SS-A <0.2 AI (0.0-0.9); *ANA SJOGREN'S ANTI-SS-B <0.2 AI (0.0-0.9); *ANAANTI-SCLERODERMA-70 AB <0.2 AI (0.0-0.9); *ANASMITH AB <0.2 AI (0.0-0.9)
[2023-10-30 12:29] LABS: HIV-1 p24 ANTIGEN NON REACTIVE (NONREACTIVE); HIV-1/2 ANTIBODY NON REACTIVE (NONREACTIVE)
[2023-10-30] MEDS: MEROPENEM 1 G in IV NS 0.9% 100 ML IV SCH (20:22)
[2023-10-31] VITALS (105 sets, daily range): BP systolic 82–117; BP diastolic 48–96; TEMP 98.2–99; O2SAT 5–100
[2023-10-31 03:22] LABS: BASOPHILS # (AUTO) 0.1 K/uL (0.0-0.2); BASOPHILS % (AUTO) 0.4 % (0.0-2.0); EOSINOPHILS # (AUTO) 0.2 K/uL (0.0-0.7); EOSINOPHILS % (AUTO) 1.6 % (0.0-6.0); LYMPHOCYTES # (AUTO) 1.4 K/uL (0.8-4.8); LYMPHOCYTES % (AUTO) 9.9 % (20.0-44.0); MEAN CORPUSCULAR HEMOGLOBIN 30 PG (26.0-33.0); MEAN CORPUSCULAR HGB CONC 34 g/dl (31.0-36.0); MEAN CORPUSCULAR VOLUME 88 fL (82-100); MONOCYTES # (AUTO) 1.6 K/uL (0.1-1.30); MONOCYTES % (AUTO) 11.2 % (2.0-12.0); NEUTROPHILS # (AUTO) 10.7 K/uL (1.8-8.9); NEUTROPHILS % (AUTO) 76.9 % (43.0-81.0); PLATELET COUNT (AUTO) 116 K/uL (150-450); RED BLOOD CELL COUNT(AUTO) 2.33 MIL/uL (4.0-5.2); RED CELL DISTRIBUTION WIDTH 18.2 % (11.5-15.0); WHITE BLOOD COUNT (AUTO) 13.9 K/uL (4.3-11.0)
[2023-10-31 03:38] LABS: HEMATOCRIT 20 % (33-45); HEMOGLOBIN 6.9 g/dL (11.5-14.8)
[2023-10-31 03:43] LABS: CALCIUM, SERUM 8.3 mg/dL (8.5-10.1); CREATININE 0.8 mg/dL (0.6-1.3); MAGNESIUM 1.3 mg/dL (1.8-2.4); POTASSIUM 3.2 mmol/L (3.5-5.1)
[2023-10-31 03:52] LABS: INR 2.05 (0.91-1.10); PARTIAL THROMBOPLASTIN TIME 46.3 SEC (24.3-34.3); PROTHROMBIN TIME 20.7 SECS (9.2-11.1)
[2023-10-31 04:19] LABS: D-DIMER 8.78 mg/L(FEU (0.17-0.50)
[2023-10-31 06:04] LABS: ANISOCYTOSIS 1+; EOSINOPHILS % (MANUAL) 2 % (0-4); LYMPHOCYTES % (MANUAL) 7 % (16-48); MONOCYTES % (MANUAL) 10 % (0-11.0); NEUTROPHILS % (MANUAL) 81 (42-76); PLATELET ESTIMATE DECREASED; STOMATOCYTES 1+
[2023-10-31 09:08] LABS: HEPATITIS B SURFACE AB Non Reactive (.)
[2023-10-31] MEDS: Magnesium 1GM/D5W 100ML PREMIX 100 ML IV SCH (10:31)
[2023-10-31] MEDS: POTASSIUM CHLORIDE 20 MEQ TAB.PRT.SR PO ONE (10:31)
[2023-10-31] MEDS ORDERED: IOHEXOL-300 100 ML VIAL IV ONE (16:20)
[2023-10-31] MEDS ORDERED: IV NS 0.9% 250 ML IV ONE (16:20)
[2023-10-31] MEDS: ACETAMINOPHEN 325 MG TABLET PO ONE (17:13)
[2023-10-31] MEDS: diphenhydrAMINE HCL 50 MG/ML VIAL IV ONE (17:14)
[2023-11-01] VITALS (93 sets, daily range): BP systolic 83–126; BP diastolic 29–108; TEMP 97.5–99.3; O2SAT 83–100
[2023-11-01 04:04] LABS: BASOPHILS # (AUTO) 0.2 K/uL (0.0-0.2); BASOPHILS % (AUTO) 0.9 % (0.0-2.0); EOSINOPHILS # (AUTO) 0.2 K/uL (0.0-0.7); EOSINOPHILS % (AUTO) 1.2 % (0.0-6.0); HEMATOCRIT 24 % (33-45); LYMPHOCYTES # (AUTO) 1.6 K/uL (0.8-4.8); LYMPHOCYTES % (AUTO) 8.8 % (20.0-44.0); MEAN CORPUSCULAR HEMOGLOBIN 29 PG (26.0-33.0); MEAN CORPUSCULAR HGB CONC 34 g/dl (31.0-36.0); MEAN CORPUSCULAR VOLUME 88 fL (82-100); MONOCYTES # (AUTO) 2.4 K/uL (0.1-1.30); MONOCYTES % (AUTO) 13.3 % (2.0-12.0); NEUTROPHILS # (AUTO) 13.5 K/uL (1.8-8.9); NEUTROPHILS % (AUTO) 75.8 % (43.0-81.0); PLATELET COUNT (AUTO) 118 K/uL (150-450); RED BLOOD CELL COUNT(AUTO) 2.71 MIL/uL (4.0-5.2); RED CELL DISTRIBUTION WIDTH 17.5 % (11.5-15.0); WHITE BLOOD COUNT (AUTO) 17.8 K/uL (4.3-11.0)
[2023-11-01 04:19] LABS: CALCIUM, SERUM 8.2 mg/dL (8.5-10.1); CREATININE 0.8 mg/dL (0.6-1.3); MAGNESIUM 1.5 mg/dL (1.8-2.4); PHOSPHORUS 2.5 mg/dL (2.5-4.9); POTASSIUM 3.3 mmol/L (3.5-5.1)
[2023-11-01 04:24] LABS: INR 1.77 (0.91-1.10); PARTIAL THROMBOPLASTIN TIME 40.7 SEC (24.3-34.3); PROTHROMBIN TIME 18.1 SECS (9.2-11.1)
[2023-11-01 04:26] LABS: D-DIMER 8.34 mg/L(FEU (0.17-0.50)
[2023-11-01 09:08] LABS: FREE KAPPA LT CHAINS SERUM 69.1 mg/L (3.3-19.4); FREE LAMBDA LT CHAIN SERUM 75.7 mg/L (5.7-26.3); KAPPA/LAMBDA RATIO SERUM 0.91 (0.26-1.65)
[2023-11-01] MEDS: MAGNESIUM OXIDE 400 MG TABLET PO ONE (09:50)
[2023-11-01] MEDS: POTASSIUM CHLORIDE 20 MEQ TAB.PRT.SR PO SCH (11:05)
[2023-11-01] MEDS: MIDODRINE HCL (5MG) 5 MG TABLET PO SCH (12:27)
[2023-11-01] MEDS: NOREPINEPHRINE 8 MG in IV D5W 242 ML IV PRN (19:48)
[2023-11-01] MEDS: CLOTRIMAZOLE 1% 15 GM TUBE TP SCH (19:49)
[2023-11-02] VITALS (83 sets, daily range): BP systolic 79–125; BP diastolic 51–100; TEMP 98.1–98.8; O2SAT 92–100
[2023-11-02 03:59] LABS: BASOPHILS # (AUTO) 0.2 K/uL (0.0-0.2); BASOPHILS % (AUTO) 1.2 % (0.0-2.0); EOSINOPHILS # (AUTO) 0.2 K/uL (0.0-0.7); EOSINOPHILS % (AUTO) 1.6 % (0.0-6.0); HEMATOCRIT 23 % (33-45); HEMOGLOBIN 7.9 g/dL (11.5-14.8); LYMPHOCYTES # (AUTO) 1.6 K/uL (0.8-4.8); LYMPHOCYTES % (AUTO) 10.5 % (20.0-44.0); MEAN CORPUSCULAR HEMOGLOBIN 30 PG (26.0-33.0); MEAN CORPUSCULAR HGB CONC 34 g/dl (31.0-36.0); MEAN CORPUSCULAR VOLUME 87 fL (82-100); MONOCYTES # (AUTO) 1.5 K/uL (0.1-1.30); MONOCYTES % (AUTO) 9.8 % (2.0-12.0); NEUTROPHILS # (AUTO) 11.4 K/uL (1.8-8.9); NEUTROPHILS % (AUTO) 76.9 % (43.0-81.0); PLATELET COUNT (AUTO) 121 K/uL (150-450); RED BLOOD CELL COUNT(AUTO) 2.63 MIL/uL (4.0-5.2); RED CELL DISTRIBUTION WIDTH 17.1 % (11.5-15.0); WHITE BLOOD COUNT (AUTO) 14.8 K/uL (4.3-11.0)
[2023-11-02 04:09] LABS: CALCIUM, SERUM 7.7 mg/dL (8.5-10.1); CREATININE 0.7 mg/dL (0.6-1.3); PHOSPHORUS 2.5 mg/dL (2.5-4.9); POTASSIUM 3.3 mmol/L (3.5-5.1)
[2023-11-02 04:14] LABS: MAGNESIUM 1.2 mg/dL (1.8-2.4)
[2023-11-02] MEDS: Magnesium 1GM/D5W 100ML PREMIX 100 ML IV SCH (06:30)
[2023-11-02] MEDS: POTASSIUM CHLORIDE 20 MEQ TAB.PRT.SR PO ONE (08:13)
[2023-11-02] MEDS: SPIRONOLACTONE 25 MG TABLET PO SCH (12:33)
[2023-11-02 18:30] LABS: INR 1.79 (0.91-1.10); PARTIAL THROMBOPLASTIN TIME 41.9 SEC (24.3-34.3); PROTHROMBIN TIME 18.3 SECS (9.2-11.1)
[2023-11-02 18:49] LABS: D-DIMER 9.52 mg/L(FEU (0.17-0.50)
[2023-11-03] VITALS (75 sets, daily range): BP systolic 81–119; BP diastolic 47–96; TEMP 98.2–98.6; O2SAT 92–100
[2023-11-03 04:35] LABS: BASOPHILS # (AUTO) 0.1 K/uL (0.0-0.2); EOSINOPHILS # (AUTO) 0.3 K/uL (0.0-0.7); HEMATOCRIT 22 % (33-45); HEMOGLOBIN 7.6 g/dL (11.5-14.8); LYMPHOCYTES # (AUTO) 1.5 K/uL (0.8-4.8); MEAN CORPUSCULAR HEMOGLOBIN 30 PG (26.0-33.0); MEAN CORPUSCULAR HGB CONC 35 g/dl (31.0-36.0); MEAN CORPUSCULAR VOLUME 87 fL (82-100); MONOCYTES # (AUTO) 1.6 K/uL (0.1-1.30); MONOCYTES % (AUTO) 10.9 % (2.0-12.0); NEUTROPHILS # (AUTO) 11.4 K/uL (1.8-8.9); NEUTROPHILS % (AUTO) 76.1 % (43.0-81.0); PLATELET COUNT (AUTO) 115 K/uL (150-450); RED CELL DISTRIBUTION WIDTH 17.9 % (11.5-15.0)
[2023-11-03 04:52] LABS: CALCIUM, SERUM 8.6 mg/dL (8.5-10.1); CREATININE 0.7 mg/dL (0.6-1.3); MAGNESIUM 1.5 mg/dL (1.8-2.4); PHOSPHORUS 2.7 mg/dL (2.5-4.9); POTASSIUM 3.4 mmol/L (3.5-5.1)
[2023-11-03] MEDS: MIDODRINE HCL (5MG) 5 MG TABLET PO SCH (08:17)
[2023-11-03] MEDS: POTASSIUM CHLORIDE 20 MEQ TAB.PRT.SR PO SCH (08:43)
[2023-11-03] MEDS: MAGNESIUM OXIDE 400 MG TABLET PO ONE (08:43)
[2023-11-03] MEDS: PHYTONADIONE INJ 10 MG/1 ML AMPUL SQ ONE (13:00)
[2023-11-03] MEDS: ACETAMINOPHEN 325 MG TABLET PO ONE (23:55)
[2023-11-03] MEDS: diphenhydrAMINE HCL 50 MG/ML VIAL IV ONE (23:56)
[2023-11-04] VITALS (49 sets, daily range): BP systolic 68–129; BP diastolic 31–102; TEMP 98–99.4; O2SAT 88–100
[2023-11-04 04:57] LABS: BASOPHILS # (AUTO) 0.2 K/uL (0.0-0.2); EOSINOPHILS # (AUTO) 0.3 K/uL (0.0-0.7); EOSINOPHILS % (AUTO) 1.4 % (0.0-6.0); HEMATOCRIT 22 % (33-45); HEMOGLOBIN 7.4 g/dL (11.5-14.8); LYMPHOCYTES # (AUTO) 1.6 K/uL (0.8-4.8); LYMPHOCYTES % (AUTO) 7.8 % (20.0-44.0); MEAN CORPUSCULAR HEMOGLOBIN 30 PG (26.0-33.0); MEAN CORPUSCULAR HGB CONC 34 g/dl (31.0-36.0); MEAN CORPUSCULAR VOLUME 89 fL (82-100); MONOCYTES % (AUTO) 9.6 % (2.0-12.0); NEUTROPHILS # (AUTO) 16.5 K/uL (1.8-8.9); NEUTROPHILS % (AUTO) 80.2 % (43.0-81.0); PLATELET COUNT (AUTO) 118 K/uL (150-450); RED BLOOD CELL COUNT(AUTO) 2.47 MIL/uL (4.0-5.2); RED CELL DISTRIBUTION WIDTH 18.6 % (11.5-15.0); WHITE BLOOD COUNT (AUTO) 20.6 K/uL (4.3-11.0)
[2023-11-04 05:15] LABS: ALBUMIN 2.6 g/dL (3.4-5.0); BILIRUBIN,TOTAL 11.9 mg/dL (0.2-1.0); CALCIUM, SERUM 7.9 mg/dL (8.5-10.1); CREATININE 1.1 mg/dL (0.6-1.3); MAGNESIUM 1.5 mg/dL (1.8-2.4); POTASSIUM 3.9 mmol/L (3.5-5.1); TOTAL PROTEIN, SERUM 5.7 g/dL (6.4-8.2)
[2023-11-04] MEDS: Magnesium 1GM/D5W 100ML PREMIX 100 ML IV SCH (09:01)
[2023-11-04 21:20] LABS: INR 1.49 (0.91-1.10); PROTHROMBIN TIME 15.4 SECS (9.2-11.1)
[2023-11-04 21:25] LABS: D-DIMER 11.66 mg/L(FEU (0.17-0.50)
[2023-11-04 21:33] LABS: PARTIAL THROMBOPLASTIN TIME 33.8 SEC (24.3-34.3)
[2023-11-05] VITALS (92 sets, daily range): BP systolic 46–145; BP diastolic 23–118; TEMP 98.3–99; O2SAT 51–99
[2023-11-05] MEDS: NOREPINEPHRINE 8 MG in IV D5W 242 ML IV PRN (02:37)
[2023-11-05 05:12] LABS: BASOPHILS # (AUTO) 0.3 K/uL (0.0-0.2); EOSINOPHILS # (AUTO) 0.2 K/uL (0.0-0.7); EOSINOPHILS % (AUTO) 0.7 % (0.0-6.0); HEMATOCRIT 22 % (33-45); HEMOGLOBIN 7.4 g/dL (11.5-14.8); LYMPHOCYTES # (AUTO) 2.4 K/uL (0.8-4.8); LYMPHOCYTES % (AUTO) 8.5 % (20.0-44.0); MEAN CORPUSCULAR HEMOGLOBIN 31 PG (26.0-33.0); MEAN CORPUSCULAR HGB CONC 34 g/dl (31.0-36.0); MEAN CORPUSCULAR VOLUME 90 fL (82-100); MONOCYTES # (AUTO) 2.3 K/uL (0.1-1.30); MONOCYTES % (AUTO) 7.9 % (2.0-12.0); NEUTROPHILS # (AUTO) 23.4 K/uL (1.8-8.9); NEUTROPHILS % (AUTO) 81.9 % (43.0-81.0); PLATELET COUNT (AUTO) 136 K/uL (150-450); RED BLOOD CELL COUNT(AUTO) 2.44 MIL/uL (4.0-5.2); RED CELL DISTRIBUTION WIDTH 18.8 % (11.5-15.0); WHITE BLOOD COUNT (AUTO) 28.6 K/uL (4.3-11.0)
[2023-11-05 05:21] LABS: CALCIUM, SERUM 9.3 mg/dL (8.5-10.1); CREATININE 1.2 mg/dL (0.6-1.3); POTASSIUM 4.3 mmol/L (3.5-5.1)
[2023-11-05] MEDS: MEROPENEM 1 G in IV NS 0.9% 100 ML IV SCH (17:57)
[2023-11-05 18:28] LABS: INR 1.9 (0.91-1.10); PARTIAL THROMBOPLASTIN TIME 42.2 SEC (24.3-34.3); PROTHROMBIN TIME 19.3 SECS (9.2-11.1)
[2023-11-05 18:31] LABS: D-DIMER 16.78 mg/L(FEU (0.17-0.50)
[2023-11-06] VITALS (102 sets, daily range): BP systolic 69–114; BP diastolic 40–91; TEMP 98–98.8; O2SAT 87–100
[2023-11-06 05:45] LABS: BASOPHILS # (AUTO) 0.1 K/uL (0.0-0.2); BASOPHILS % (AUTO) 0.6 % (0.0-2.0); EOSINOPHILS # (AUTO) 0.5 K/uL (0.0-0.7); EOSINOPHILS % (AUTO) 2.9 % (0.0-6.0); LYMPHOCYTES # (AUTO) 1.4 K/uL (0.8-4.8); LYMPHOCYTES % (AUTO) 8.4 % (20.0-44.0); MEAN CORPUSCULAR HEMOGLOBIN 30 PG (26.0-33.0); MEAN CORPUSCULAR HGB CONC 34 g/dl (31.0-36.0); MEAN CORPUSCULAR VOLUME 89 fL (82-100); MONOCYTES # (AUTO) 1.3 K/uL (0.1-1.30); MONOCYTES % (AUTO) 7.9 % (2.0-12.0); NEUTROPHILS % (AUTO) 80.2 % (43.0-81.0); PLATELET COUNT (AUTO) 115 K/uL (150-450); RED BLOOD CELL COUNT(AUTO) 2.22 MIL/uL (4.0-5.2); WHITE BLOOD COUNT (AUTO) 16.2 K/uL (4.3-11.0)
[2023-11-06 05:53] LABS: HEMATOCRIT 20 % (33-45); HEMOGLOBIN 6.7 g/dL (11.5-14.8)
[2023-11-06 06:09] LABS: CALCIUM, SERUM 8.9 mg/dL (8.5-10.1); CREATININE 1.2 mg/dL (0.6-1.3); MAGNESIUM 1.8 mg/dL (1.8-2.4); PHOSPHORUS 3.3 mg/dL (2.5-4.9); POTASSIUM 3.9 mmol/L (3.5-5.1)
[2023-11-06 17:44] LABS: ANISOCYTOSIS 1+; EOSINOPHILS % (MANUAL) 1 % (0-4); LYMPHOCYTES % (MANUAL) 8 % (16-48); MONOCYTES % (MANUAL) 8 % (0-11.0); NEUTROPHILS % (MANUAL) 83 (42-76); PLATELET ESTIMATE DECREASED
[2023-11-06 18:02] LABS: INR 1.84 (0.91-1.10); PARTIAL THROMBOPLASTIN TIME 41.6 SEC (24.3-34.3); PROTHROMBIN TIME 18.7 SECS (9.2-11.1)
[2023-11-06 18:32] LABS: D-DIMER 13.85 mg/L(FEU (0.17-0.50)
[2023-11-06 21:28] LABS: OCCULT BLOOD STOOL NEGATIVE (NEGATIVE)
[2023-11-07] VITALS (95 sets, daily range): BP systolic 71–128; BP diastolic 29–98; TEMP 97.7–98.8; O2SAT 87–100
[2023-11-07 04:51] LABS: BASOPHILS # (AUTO) 0.1 K/uL (0.0-0.2); BASOPHILS % (AUTO) 0.5 % (0.0-2.0); EOSINOPHILS # (AUTO) 0.3 K/uL (0.0-0.7); EOSINOPHILS % (AUTO) 1.8 % (0.0-6.0); HEMATOCRIT 24 % (33-45); HEMOGLOBIN 7.9 g/dL (11.5-14.8); LYMPHOCYTES # (AUTO) 1.8 K/uL (0.8-4.8); LYMPHOCYTES % (AUTO) 10.1 % (20.0-44.0); MEAN CORPUSCULAR HEMOGLOBIN 30 PG (26.0-33.0); MEAN CORPUSCULAR HGB CONC 33 g/dl (31.0-36.0); MEAN CORPUSCULAR VOLUME 91 fL (82-100); MONOCYTES # (AUTO) 1.5 K/uL (0.1-1.30); MONOCYTES % (AUTO) 8.6 % (2.0-12.0); PLATELET COUNT (AUTO) 137 K/uL (150-450); RED BLOOD CELL COUNT(AUTO) 2.61 MIL/uL (4.0-5.2); RED CELL DISTRIBUTION WIDTH 19.3 % (11.5-15.0); WHITE BLOOD COUNT (AUTO) 17.7 K/uL (4.3-11.0)
[2023-11-07 05:18] LABS: CALCIUM, SERUM 8.5 mg/dL (8.5-10.1); CREATININE 1.2 mg/dL (0.6-1.3); MAGNESIUM 1.5 mg/dL (1.8-2.4); POTASSIUM 3.6 mmol/L (3.5-5.1)
[2023-11-07] MEDS: MAGNESIUM OXIDE 400 MG TABLET PO ONE (11:06)
[2023-11-07] MEDS ORDERED: PHENYLEPHRINE/SHK LV/MO/PET,WH 30 GM TUBE RC PRN (16:00)
[2023-11-07] MEDS: diphenhydrAMINE HCL 50 MG/ML VIAL IV ONE (21:37)
[2023-11-07] MEDS: ACETAMINOPHEN 325 MG TABLET PO ONE (21:37)
[2023-11-07 22:20] LABS: INR 2.01 (0.91-1.10); PARTIAL THROMBOPLASTIN TIME 48.1 SEC (24.3-34.3); PROTHROMBIN TIME 20.4 SECS (9.2-11.1)
[2023-11-07 22:25] LABS: D-DIMER 12.24 mg/L(FEU (0.17-0.50)
[2023-11-08] VITALS (80 sets, daily range): BP systolic 70–132; BP diastolic 42–95; TEMP 97.2–98.6; O2SAT 86–100
[2023-11-08 04:46] LABS: BASOPHILS # (AUTO) 0.3 K/uL (0.0-0.2); BASOPHILS % (AUTO) 1.4 % (0.0-2.0); EOSINOPHILS # (AUTO) 0.5 K/uL (0.0-0.7); EOSINOPHILS % (AUTO) 2.6 % (0.0-6.0); LYMPHOCYTES # (AUTO) 1.8 K/uL (0.8-4.8); LYMPHOCYTES % (AUTO) 9.7 % (20.0-44.0); MEAN CORPUSCULAR HEMOGLOBIN 30 PG (26.0-33.0); MEAN CORPUSCULAR HGB CONC 34 g/dl (31.0-36.0); MEAN CORPUSCULAR VOLUME 88 fL (82-100); MONOCYTES % (AUTO) 10.9 % (2.0-12.0); NEUTROPHILS # (AUTO) 14.2 K/uL (1.8-8.9); NEUTROPHILS % (AUTO) 75.4 % (43.0-81.0); PLATELET COUNT (AUTO) 147 K/uL (150-450); RED BLOOD CELL COUNT(AUTO) 2.28 MIL/uL (4.0-5.2); RED CELL DISTRIBUTION WIDTH 19.9 % (11.5-15.0); WHITE BLOOD COUNT (AUTO) 18.8 K/uL (4.3-11.0)
[2023-11-08 05:31] LABS: CALCIUM, SERUM 8.9 mg/dL (8.5-10.1); CREATININE 1.3 mg/dL (0.6-1.3); POTASSIUM 3.6 mmol/L (3.5-5.1)
[2023-11-08 05:38] LABS: HEMOGLOBIN 6.9 g/dL (11.5-14.8)
[2023-11-08 05:39] LABS: HEMATOCRIT 20 % (33-45)
[2023-11-08 06:29] LABS: ANISOCYTOSIS 1+; BAND % (MANUAL) 4 % (0.0-5.0); BASOPHILS % (MANUAL) 0 % (0.0-2.0); EOSINOPHILS % (MANUAL) 1 % (0-4); HYPOCHROMASIA 1+; LYMPHOCYTES % (MANUAL) 8 % (16-48); MONOCYTES % (MANUAL) 8 % (0-11.0); NEUTROPHILS % (MANUAL) 79 (42-76); PLATELET ESTIMATE ADEQUATE
[2023-11-08 18:33] LABS: HEMOGLOBIN 8.7 g/dL (11.5-14.8)
== END 2023-11-08 19:30 | disposition short-term general hospital (02) | DRG 720 ==
LOC: ER 00:32 → TELE 04:07 → MED 04:18 → ICU 10-20 05:36
PROVIDERS: ADMIT Nurse Practitioner Acute Care; ATTEND Nurse Practitioner Acute Care
PROC: 0W9G3ZZ Drainage of Peritoneal Cavity, Percutaneous Approach (ICD-10-PCS; principal; 2023-10-18)
PROC: 30233N1 Transfusion of Nonautologous Red Blood Cells into Peripheral Vein, Percutaneous Approach (ICD-10-PCS; 2023-10-19)
PROC: 30233L1 Transfusion of Nonautologous Fresh Plasma into Peripheral Vein, Percutaneous Approach (ICD-10-PCS; 2023-10-26)
PROC: 0W9G3ZZ Drainage of Peritoneal Cavity, Percutaneous Approach (ICD-10-PCS; 2023-10-27)
PROC: 05HC33Z Insertion of Infusion Device into Left Basilic Vein, Percutaneous Approach (ICD-10-PCS; 2023-10-28)
PROC: 30233M1 Transfusion of Nonautologous Plasma Cryoprecipitate into Peripheral Vein, Percutaneous Approach (ICD-10-PCS; 2023-10-28)
PROC: 0W9G3ZZ Drainage of Peritoneal Cavity, Percutaneous Approach (ICD-10-PCS; 2023-11-06)
DX: A41.9 Sepsis, unspecified organism (principal); N17.0 Acute kidney failure with tubular necrosis; K76.7 Hepatorenal syndrome; J96.01 Acute respiratory failure with hypoxia; R65.21 Severe sepsis with septic shock; D61.818 Other pancytopenia; E72.20 Disorder of urea cycle metabolism, unspecified; J15.9 Unspecified bacterial pneumonia; G93.40 Encephalopathy, unspecified; K72.10 Chronic hepatic failure without coma; E44.0 Moderate protein-calorie malnutrition; E87.20 Acidosis, unspecified; D63.8 Anemia in other chronic diseases classified elsewhere; K76.6 Portal hypertension; K70.31 Alcoholic cirrhosis of liver with ascites; Z79.899 Other long term (current) drug therapy; K80.20 Calculus of gallbladder without cholecystitis without obstruction; E86.9 Volume depletion, unspecified; N20.0 Calculus of kidney; M89.8X9 Other specified disorders of bone, unspecified site; F10.11 Alcohol abuse, in remission; E88.09 Other disorders of plasma-protein metabolism, not elsewhere classified; R74.01 Elevation of levels of liver transaminase levels; Z87.442 Personal history of urinary calculi; K86.89 Other specified diseases of pancreas; K82.8 Other specified diseases of gallbladder; I11.9 Hypertensive heart disease without heart failure; J90 Pleural effusion, not elsewhere classified; E87.70 Fluid overload, unspecified; E83.51 Hypocalcemia; E83.42 Hypomagnesemia; D68.9 Coagulation defect, unspecified; E87.6 Hypokalemia; J98.11 Atelectasis; K52.9 Noninfective gastroenteritis and colitis, unspecified; N39.0 Urinary tract infection, site not specified; Y90.9 Presence of alcohol in blood, level not specified
CPT/HCPCS: 36410; 36415; 36600; 49083; 71045-TC; 71250-TC; 71260-TC; 76705-TC; 76770-TC; 76856-TC; 80048-TC; 80053-TC; 80076-TC; 81001; 82040-TC; 82105; 82140-TC; 82150-TC; 82248-TC; 82272-TC; 82378; 82550-TC; 82570-TC; 82607-TC; 82728-TC; 82784; 82803-TC; 82962-TC; 83540-TC; 83605-TC; 83615-TC; 83690-TC; 83735-TC; 83970; 84100-TC; 84155; 84165; 84300-TC; 84439-TC; 84443-TC; 84484-TC; 85025-TC; 85027-TC; 85385-TC; 85396; 85610-TC; 85730-TC; 86140-TC; 86225; 86235; 86300; 86301; 86304; 86334; 86431-TC; 86706; 86803; 86850-TC; 87040-TC; 87081-TC; 87340; 87806; 88108-TC; 88304-TC; 88312-TC; 88341; 88342; 89051-TC; 93307-TC; 94799-TC; 97110-TC; 97112-TC; 97116-TC; 97530-TC; 98960; A4216; A4223; A4624; A6403; G0378; J0696; J1170; J1200; J1940; J2185; J2405; J2543; J3430; J3475; J3480; J3490; J7030; J7040; J7050; J7060; P9012; P9016; P9017; P9047; Q9967